=== PATIENT | female | born 1935 | race Caucasian/White ===

== ENCOUNTER 2024-12-23 08:42 | Outpatient (OUT) | payer MEDICARE, SELFPAY ==
--- OUTSIDE RECORDS SUMMARY | 2024-12-02 05:20 | XMS_ITS ---
Author Organization [facility] Address [address] [place] [address] Care Team Providers Care Furnace Hand Name Role Phone Nicola Salinas Unavailable [phone] Bao Iqbal Unavailable [phone] Allergies No Known Allergies REASON FOR VISIT JAM - Right Knee OA, Sympt Check Social History Tobacco Use: Social History Observation Description Date Details (start date - stop date) Never Smoker NA - NA AUDIT-C (Standard) Question Answer Notes Did you have a drink containing alcohol in the p ast year? No Points 0 Interpretation Negative Tobacco Control (Standard) Question Answer Notes Tobacco use: Nonsmoker Encounters Encounter Location Date Provider Diagnosis [facility] [address] [place] [id number] 12/02/2024 Bao Iqbal Primary osteoarthrit is of right knee M17.11 Assessments Encounter Date Diagnosis (ICD Code) Assessment Notes Treatment Notes Treatment Clinical Notes Section Notes 12/02/2024 Primary osteoarthritis of right knee (ICD-10 - M17.11) 12/02/2024 Other The nature treatment and recovery of [...] the office. This is on file at [facility]. Medical clearance is pending The above plan [...] the office. This is on file at [facility]. Medical clearance is pending The above plan is a continuation of previous treatment plan set forth by or agreed upon by Dr. Nicola Salinas MD. Preoperative laboratory studies were ordered today. Next Appt Details Follow Up: To Schedule Surge ry, Reason: Provider Name:Nicola Roland , 01/15/2025 12:30:00 PM, [address] [place] [address], [address], [place], [place], [id number], Provider Name:Nicola Roland , 01/30/2025 10:40:00 AM, [address] [place] [address], [phone], Progress Notes * MADISON VU RDOB:[birth year] (89 yo F)Acc No.[id number]:12/02/2024 Patient: MADISON CHAUDHARI Provider: MARIO Allison :1935 A ge:89 Y S ex:Female Date:12/02/2024 Address:[facility] [place], [id number] Subjective: * Chief Complaints: * 1 . JAM - Right Knee OA, Sympt Check. * HPI: H andP: Madison VU presents for right total knee replacement consultation. Patient reports chronic right knee pain secondary to severe arthritis. Previous treatment with cortisone injections was initially effective but no longer provides relief. Patient states she can't wait to be pain-free and has decided it's time to do something constructive about the condition. S urgeon: Dr. Babar Salinas MD. P rocedure Location: [facility]. H ospital Status: The patient's hospital status will be considered as 23 hour observation. H PI: The following note will serve as both clinical documentation for today's visit and surgical history and physical. Madison Vu is an 89-year-old female presenting for pre-operative history and physical examination in preparation for right total knee replacement surgery scheduled for 01/15/2025 at the [facility]. Patient reports ongoing knee [...] disease, heart attack, stroke, blood clots, smoking, or alcohol use. She takes no medications currently. Allergic to cough syrup which causes facial flushing. No known allergies to penicillin. No history of irregular heartbeat or heart murmur. Uses [facility] in [place]. H ome-Going Plans: The patient intends on returning home after their hospital stay. P ost-Operative Pain Management: Patient denies any specific needs for pain medication. We will utilize normal pain protocol. D VT Prophylaxis: On evaluation of the patient's past medical history she makes risk stratification for the use of aspirin 81 mg 1 tab twice daily #60 for DVT prophylaxis. I ndications: Right knee pain. * ROS: U nchanged from xx/xx/xxxx. * Medical History: M edical [...] N .K.D.A. Objective: * Vitals: * Examination: X -ray Imaging Studies: X -ray imaging of the right knee demonstrates eaxr-fn-nzfb contact with complete loss of cartilage, consistent with severe degenerative joint disease. R ight Lower Extremity: R ight knee examination reveals maximum flexion of approximately [...] tendon reflexes are intact. No lymphadenopathy is noted.Range of motion of the knee is 0-120 degrees. There is point tenderness to touch over the medial joint line. Patient has pseudo-laxity with a valgus stress test. Negative anterior drawer, posterior drawer, Edison. G eneral examination: G eneral: Patient is alert and oriented x4. Well-dressed, well-groomed and pleasant in the office today. Patient is in no acute distress. Abdominal: Normal bowel sounds were auscultated in all quadrants. The abdomen was soft and nontender. No organomegaly or pulsatile masses were noted on exam. specific exam: X-ray Imaging studies: Three-view x-rays of the right knee obtained at [facility] at a previous appointment show loss of medial joint line space, para-articular osteophyte formation, and subchondral sclerosis noted on examination today.These x-rays were reviewed and templated by Dr. Salinas for the upcoming surgery. H EENT: T he patient is normocephalic, atraumatic. Pupils are equal and reactive to light. Extraocular motions are intact x3. Oral mucosa is pink and moist. Uvula is midline. The neck is soft and supple with a full range of motion. No masses were palpated on examination today, and no bruits were auscultated on examination. Cranial nerves II through XII are grossly intact. C ardiovascular: N ormal rate and rhythm auscultated on examination today. No rubs, murmurs or gallops are noted. P ulmonary: N ormal vesicular breath sounds were auscultated in all nieves. No rales, wheezes or rhonchi were noted. On examination today. L eft Upper Extremity: E xamination of the left upper extremity shows full range of motion 5-5 strength of the left shoulder, elbow, wrist, thumb and phalangeal joints. Good radial pulse. Capillary refill is less than 2 seconds. The patient is neurovascularly intact distally. Deep tendon reflexes are intact. No lymphadenopathy is noted on examination. L eft Lower Extremity: E xamination of the left lower extremity shows a full range of motion 5-5 strength of the left hip, ankle, subtalar, and phalangeal joints. Good pedal pulses. Capillary refills less than 2 seconds. The patient is neurologically intact distally. Deep tendon reflexes are intact. No lymphadenopathy is noted on examination. R ight Upper Extremity: E xamination of the right upper extremity shows a full range of motion and 5 out of 5 strength of the right shoulder, elbow, wrist, thumb and phalangeal joint. Good pedal pulses. Capillary refills less than 2 seconds. The patient is neurologically intact distally. Deep tendon reflexes are intact. No lymphadenopathy is noted on examination. Assessment: * Assessment: 1. P rimary osteoarthritis of right knee - M17.11 (Primary) Plan: * Treatment: * Follow Up: T o Schedule Surgery Forms: * Images: * Electronic signature of Bao Iqbal PA-C on 12/23/2024 at 08:53 AM EDT Sign off status: Pending * Provider: MARIO Allison Date: 0 12/02/2024 Generated for Krys dave/Radha/Maryitting on: 08:53 AM EDT History and Physical Notes * HPI (History of Present Illness) Category Sub-Category Detail Notes Category Not es HandP Madison VU p resents for right total knee replacement consultation. Patient reports chronic right knee pain secondary to severe arthritis. Previous treatment with cortisone injections was initially effective but no longer provides relief. Patient states she can't wait to be pain-free and has decided it's time to do something constructive about the condition. HPI The following n ote will serve as both clinical documentation for today's visit and surgical history and physical. Madison Vu is an 89-year-old female presenting for pre-operative history and physical examination in preparation for right total knee replacement surgery scheduled for 01/15/2025 at the [facility]. Patient reports ongoing knee [...] disease, heart attack, stroke, blood clots, smoking, or alcohol use. She takes no medications currently. Allergic to cough syrup which causes facial flushing. No known allergies to penicillin. No history of irregular heartbeat or heart murmur. Uses [facility] in [place]. Surgeon Dr. Babar Salinas MD Indications Right knee pain Home-Going Plans The patient intends on returning home after their hospital stay. Post-Operative Pain Management Patient denies any specific needs for pain medication. We will utilize normal pain protocol. DVT Prophylaxis On evaluatio n of the patient's past medical history she makes risk stratification for the use of aspirin 81 mg 1 tab twice daily #60 for DVT prophylaxis Procedure Location [facility] Status The patient' s hospital status will be considered as 23 hour observation. Examination Category Sub-Category Detail Notes Category Not es General examination General: Patient is alert and oriented x4. Well-dressed, well-groomed and pleasant in the office today. Patient is in no acute distress. Abdominal: Normal bowel sounds were auscultated in all quadrants. The abdomen was soft and nontender. No organomegaly or pulsatile masses were noted on exam. specific exam: X-ray Imaging studies: Three-view x-rays of the right knee obtained at [facility] at a previous appointment show loss of medial joint line space, para-articular osteophyte formation, and subchondral sclerosis noted on examination today.These x-rays were reviewed and templated by Dr. Salinas for the upcoming surgery. X-ray Imaging Studies X-ray imaging of the right knee demonstrates mqld-pf-xkjq contact with complete loss of cartilage, consistent with severe degenerative joint disease. HEENT The patient is normocephalic, atraumatic. Pupils are equal and reactive to light. Extraocular motions are intact x3. Oral mucosa is pink and moist. Uvula is midline. The neck is soft and supple with a full range of motion. No masses were palpated on examination today, and no bruits were auscultated on examination. Cranial nerves II through XII are grossly intact. Cardiovascular Normal rate a nd rhythm auscultated on examination today. No rubs, murmurs or gallops are noted. Pulmonary Normal vesicula r breath sounds were auscultated in all nieves. No rales, wheezes or rhonchi were noted. On examination today. Left Upper Extremity Examina tion of the left upper extremity shows full range of motion 5-5 strength of the left shoulder, elbow, wrist, thumb and phalangeal joints. Good radial pulse. Capillary refill is less than 2 seconds. The patient is neurovascularly intact distally. Deep tendon reflexes are intact. No lymphadenopathy is noted on examination Left Lower Extremity Examina tion of the left lower extremity shows a full range of motion 5-5 strength of the left hip, ankle, subtalar, and phalangeal joints. Good pedal pulses. Capillary refills less than 2 seconds. The patient is neurologically intact distally. Deep tendon reflexes are intact. No lymphadenopathy is noted on examination. Right Lower Extremity Right knee examination reveals maximum [...] tendon reflexes are intact. No lymphadenopathy is noted.Range of motion of the knee is 0-120 degrees. There is point tenderness to touch over the medial joint line. Patient has pseudo-laxity with a valgus stress test. Negative anterior drawer, posterior drawer, Edison. Right Upper Extremity Examin ation of the right upper extremity shows a full range of motion and 5 out of 5 strength of the right shoulder, elbow, wrist, thumb and phalangeal joint. Good pedal pulses. Capillary refills less than 2 seconds. The patient is neurologically intact distally. Deep tendon reflexes are intact. No lymphadenopathy is noted on examination
--- OUTSIDE RECORDS SUMMARY | 2024-12-09 08:00 | XMS_ITS | Encounter Summary ---
Author Organization [facility] Address [address] [place] [address] Care Team Providers Care Sweatband Drummer Name Role Phone Vipul Cruz MD Primary Care Provider [phone] Vipul Cruz MD Unavailable [phone] Vipul Cruz MD Unavailable [phone] Reason for Visit * Rehabilitation - Outpatient (Routine) - Closed Specialty Diagnoses / Procedures Referred By Contac t Referred To Contact Physical Therapy Diagnoses Unilateral primary osteoarthritis, right knee Procedures TX PHYSICAL THERAPY EVALUATION LOW COMPLEX 20 MINS TX OFFICE/OUTPATIENT NEW HIGH MDM 60 MINUTES Bao Iqbal PA [address] [place] [address] Phone: tel: fax: Laly Davis PT Referral ID Status Reason Start Date Expiration Date V isits Requested Visits Authorized [id number] Closed Consult and Treat 12/05/2024 02/02/2025 6 6 Encounter Details Date Type Department Care Team (Late st Contact Info) Description 12/09/2024 8:00 AM EDT [facility] [address] [place] [address] Karan Garner PTA Unilateral primary osteoarthritis, right knee (Primary Dx) Social History Tobacco Use Types Packs/Day Years Used Date Smoking Tobacco: Never Passive Smoke Exposure: Never Smokeless Tobacco: Never Alcohol Use Standard Drinks/Week Comments Never 0 (1 standard drink = 0.6 oz pur e alcohol) PHQ-2 Answer Date Recorded Patient Health Questionnaire-2 Score 0 11/21/2024 Comments Unknown Sex and Gender Information Value Date Recorded Sex Assigned at Not on file Legal Sex Female 7:39 PM EDT Gender Identity Not on file Sexual Orientation Not on file documented as of this encounter Progress Notes * Karan Garner, RECORD SYSTEMS ANALYST - 12/09/2024 8:00 AM EDT Images from the original note were not included. Physical Therapy Treatment Visit Patient Name: Madison Quach Today's Date: 12/09/2024 Encounter Diagnoses Name Primary? Unilateral primary osteoarthritis, right knee Yes Visit number: 8 (2 of 6 visits) Timed Code Treatment: 53 minutes Total Treatment Time: 53 minutes Time In: 0750 Time Out: 0850 History: Pt states she has been dealing with right knee pain for a number of years. Pt states she has had multiple injections in right knee over the years. Has never had any surgical intervention. Ptstates she has been looking into surgical options and is to begin PT. Plan for surgery in January of this year. Pt states she has been using Biofreeze at night to help her sleep. Precautions: [place] Subjective: Pt reports knees are doing well. She has been doing stair with reciprocal gait without thought. Pain: denies present Objective: PT Evaluation (11/14/2024) RIGHT KNEE AROM: 15 to 110 degrees in supine PROM: 12 to 115 degrees in supine Joint play: limited tibiofemoral mobility; decrease patellar mobility due to pain MMT: hip 4-/5, quad 4-/5 due to pain, HS 4/5 Palpation: moderate to severe tenderness medial and lateral joint space Special Test: N/A Functional: TUG without use of device: 21.67 seconds and 16.28 seconds Treatment: Manual Therapy: Passive ROM, Joint mobilization, Soft Tissue Mobilization, Myofascial Release, Muscle Energy Technique, Neural Mobilization, Myofascial Cupping, Dry Needling, IASTM, and Scar mobilization as needed. Therapeutic Exercise: ( 38 minutes supervised) Pt was instructed in and performed open and closed chain ther ex to improve knee mobility and muscular support for preparation of knee surgery. Nustep (PRN) set to hills lev 1 to prepare muscles for activity Therapeutic Activity: (15 minutes) Exercises to improve dynamic activities, functional tasks, functional mobility to return to prior activity level as needed. Practiced stairs with step to gait preparing for post op and use of up with good, down with bad . Neuromuscular re-education: Balance Training, Muscle Facilitation, Dynamic Stability, Core Stabilization, and Blood Flow Restriction Training (BFRT) as needed. Modalities: Heat, Ice, Electrical Stimulation, Ultrasound, Cervical Mechanical Traction, Lumbar Mechanical Traction, Iontophoresis, and Fluidotherapy as needed. Assessment: Visit # 7 pt for complaints of chronic right knee pain. R knee AROM 8-120 deg, quad strength 4+/5. Pain continues to limit patients activity. Educated Pt on stairs and use of step to gait with appropriate post op sequencing. Pt is scheduled for TKA in January, continue focusing on quad strength to prepare pt for up coming. Outcome Measure: Lower Extremity Functional Scale (LEFS): 15/80 Rehab Diagnosis: right knee pain, difficulty walking, decrease ROM and mobility Short Term Goal: To be met in 2 weeks Goal 1: Pt to be instructed in home exercise program. Muck Hauler Goals: To be met in 10 weeks Goal 1: Pt to report independence and compliance with home program. Met progressing Goal 2: Pt to achieve 120 degrees right knee flexion to assist with functional tasks such as squatting. progressing Goal 3: Pt to be lacking no greater than 1 degree right knee extension to assist with proper gait. met Goal 4: Pt to achieve 4 to 4+/5 strength right knee flexion and extension to assist with functionalmobility and ADL's. progressing Goal 5: Pt to score no less than 25/80 on LEFS indicating improved QOL. progressing Goal 6: Pt to complete TUG without use of device in less than 13.0 seconds indicating improve gait and mobility. progressing Pt will benefit from skilled PT for 2x/week from 11/14/2024 to 02/06/2025 to address the above impairments. I hereby deem this POC medically necessary. Please sign below. Date: Cosigned by Laly Davis PT at 12/10/2024 12:19 PM EDT documented in this encounter Plan of Treatment Upcoming Encounters Date Type Department Care Team (Late st Contact Info) Description 12/30/2024 2:00 PM EDT Office Visit [facility] [place] [facility] [address] [facility] [address] [place] [address] Vipul Cruz MD [address] [facility] [address] [place] [address] documented as of this encounter Visit Diagnoses Diagnosis Unilateral primary osteoarthritis, right knee- Primary documented in this encounter Care Teams Sweatband Drummer Relationship Specialty Start Date End Date Vipul Cruz MD [address] [facility] [address] [place] [address] PCP - General Internal Medicine 07/21/22 Vipul Cruz MD [address] [facility] [address] [place] [address] PCP - Sherri LIVINGSTON 07/12/23 Vipul Cruz MD [address] [facility] [address] [place] [address] PCP - Gilberto 11/11/24 12/15/24 documented as of this encounter
--- OUTSIDE RECORDS SUMMARY | 2024-12-12 08:00 | XMS_ITS | Encounter Summary ---
Author Organization [facility] Address [address] [place] [address] Care Team Providers Care Manager Fire Name Role Phone Vipul Cruz MD Primary Care Provider [phone] Vipul Cruz MD Unavailable [phone] Vipul Cruz MD Unavailable [phone] Reason for Visit * Rehabilitation - Outpatient (Routine) - Closed Specialty Diagnoses / Procedures Referred By Contac t Referred To Contact Physical Therapy Diagnoses Unilateral primary osteoarthritis, right knee Procedures [place] PHYSICAL THERAPY EVALUATION LOW COMPLEX 20 MINS [place] OFFICE/OUTPATIENT NEW HIGH MDM 60 MINUTES Bao Iqbal PA [address] [place] [address] Phone: tel: fax: Laly Davis PT Referral ID Status Reason Start Date Expiration Date V isits Requested Visits Authorized [id number] Closed Consult and Treat 12/05/2024 02/02/2025 6 6 Encounter Details Date Type Department Care Team (Late st Contact Info) Description 12/12/2024 8:00 AM EDT Treatment [facility] [address] [place] [address] Karan Garner PTA Unilateral primary osteoarthritis, right [...] this encounter Progress Notes * Karan Garner, MEDICAL CODING AUDITOR - 12/12/2024 8:00 AM EDT Images from the original note were not included. Physical Therapy Treatment Visit Patient Name: Madison Quach Today's Date: 12/12/2024 Encounter Diagnoses Name Primary? Unilateral primary osteoarthritis, right knee Yes Visit number: 10 (3 of 6 visits) Timed Code Treatment: 53 minutes Total Treatment Time: 53 minutes Time In: 0750 Time Out: 0845 History: Pt states she has been dealing [...] at night to help her sleep. Precautions: [place] Subjective: Pt reports knees are doing well. [...] and Fluidotherapy as needed. Assessment: Visit # 9 pt for complaints of chronic right knee pain. R knee AROM 8-120 deg, quad strength 4+/5. Pain continues to limit patients activity. Educated Pt on stairs and use of step to gait with appropriate post op sequencing. Answered all questions and reviewed HEP to ensure understanding for preparation of TKA. Pt is scheduled for TKA in January. Pt will transfer to Home management until post Op. Outcome Measure: Lower Extremity Functional Scale (LEFS): 15/80 Rehab Diagnosis: right knee pain, difficulty walking, decrease ROM and mobility Short Term Goal: To be met in 2 weeks Goal 1: Pt to be instructed in home exercise program. Cylinder Batcher Goals: To be met in 10 weeks [...] Date: Cosigned by Laly Davis PT at 12/16/2024 8:58 AM EDT documented in this encounter Plan of Treatment Upcoming Encounters Date Type Department Care Team (Late st Contact Info) Description 12/30/2024 2:00 PM EDT Office Visit [facility] [place] [facility] [address] [place] [address] Vipul Cruz MD [address] [place] [address] documented as of this encounter Visit Diagnoses Diagnosis Unilateral primary osteoarthritis, right knee- Primary documented in this encounter Care Teams Manager Fire Relationship Specialty Start Date End Date Vipul Cruz MD [address] [place] [address] PCP - General Internal Medicine 07/21/22 Vipul Cruz MD [address] [facility] [address] [place] [address] PCP - Sherri LIVINGSTON 07/12/23 Vipul Cruz MD [address] [facility] [address] [place] [address] PCP - Gilberto 11/11/24 12/15/24 documented as of this encounter
--- OUTSIDE RECORDS SUMMARY | 2024-12-23 08:52 | XMS_ITS | Encounter Summary ---
Author Organization [facility] Address [address] [place] [address] Care Team Providers Care Olericulture Professor Name Role Phone Vipul Cruz MD Primary Care Provider [phone] Vipul Cruz MD Unavailable [phone] Vipul Cruz MD Unavailable [phone] Encounter Details Date Type Department Care Team (Late Contact Info) Description 12/15/2023 Abstract [facility] [place] [facility] [address] [facility] 110 [place] [address] Vipul Cruz MD [address] [facility] [address] [place], [place] [address] Social History Tobacco Use Types Packs/Day Years Used Date Smoking Tobacco: Never Passive Smoke Exposure: Never Smokeless Tobacco: Never Alcohol Use Standard Drinks/Week Comments Never 0 (1 standard drink = 0.6 oz pur e alcohol) PHQ-2 Answer Date Recorded Patient Health Questionnaire-2 Score 0 07/10/2023 Comments Unknown Sex and Gender Information Value Date Recorded Sex Assigned at Not on file Legal Sex Female 7:39 PM EDT Gender Identity Not on file Sexual Orientation Not on file documented as of this encounter Plan of Treatment Upcoming Encounters Date Type Department Care Team (Late Contact Info) Description 12/30/2024 2:00 PM EDT Office Visit [facility] [place] [facility] [address] [facility] [address] [place] [phone] Vipul Cruz MD [address] [facility] [address] [place] [address] documented as of this encounter Visit Diagnoses Not on filedocumented in this encounter Care Teams Olericulture Professor Relationship Specialty Start Date End Date Vipul Cruz MD [address] [facility] [address] [place] [address] PCP - General Internal Medicine 07/21/22 Vipul Cruz MD [address] [facility] 110 [place] [address] PCP - Sherri LIVINGSTON 07/12/23 Vipul Cruz MD [address] [facility] [address] [place] [address] PCP - [employer] 11/11/24 12/15/24 documented as of this encounter
--- OUTSIDE RECORDS SUMMARY | 2024-12-23 08:52 | XMS_ITS | Patient Health Record ---
Author Organization [facility] Address [address] [place] [address] Care Team Providers Care Resident Engineer Name Role Phone Nicola Salinas Unavailable [phone] Bao Iqbal Unavailable [phone] Allergies No Known Allergies Results Component Value Reference Range Notes Surgery Scheduling (Not yet reviewed by provider) Interpretation: Performing Lab: Notes/Report: Social Sec number: [id number] Primary Insurance Company: [employer] Medicare Surgeon/Assist: Brad / Bao Assist Surgery Location: [facility] Surgery Date & Time: 01/15/25, 12:30 pm Hosp arrival time day of: 9:30am (PER JAM) Surgery End Time: 2hr 00min Procedure: Right Jiffy TKR Special Equipment: Routine - Mandy & Pandy C-Arm: No Diagnosis: Right Knee OA Admission Type: 23hr Obsv Anesthesia Type/CPNB: Spinal vs General Bed Supine Latex Allergy No Lab Location: [facility] Date/T Yes, Please call patient Electronic Parts Salesperson: Aby [phone] Clearance Physician: Dr. Jason Cruz ([facility]) History & Physical Appointment Date/: Done PT Appointment Date/Time: To Begin Jan 17 or Had or have MRSA/Direct cont act w MRSA pt/HCW No Reason For Referral Reason needs started [facility] 01/15/25 Right Total Knee Replacement at [facility] 01/15/25, 23hr Obsv Diagnosis 1 Primary osteoarthrit is of right knee (M17.11) Referral Organization [facility] Referring Provider First Name Nicola Referring Provider Last Name Brad Referring Provider Speciality Orthopedic Surgery Referred Organization [facility] - Outpatient Referred Provider Nicola Salinas Referred Address [address] [place] [address], [id number], Referred Provider Specialty Orthopedic S urgery Procedure 1 Arthroplasty Knee To allen Med/Lat Compartments (67938) Referral Priority Routine Social History Tobacco Use: Social History Observation Description Date Details (start date - stop date) Never Smoker NA - NA AUDIT-C (Standard) Question Answer Notes Did you have a drink containing alcohol in the p ast year? No Points 0 Interpretation Negative Tobacco Control (Standard) Question Answer Notes Tobacco use: Nonsmoker Problems Problem Type SNOMED Code ICD Code Onset Dates Problem Status W/U Status Risk Notes Problem Osteoarthritis of knee (470501213) Primary osteoarthritis of right knee (M17.11) Active confirmed Vital Signs Height 68 in 11/04/2024 Weight 180 lbs 11/04/2024 BMI 27.37 11/04/2024 Encounters Encounter Location Date Provider Diagnosis [facility] [address] [place] [phone] 12/02/2024 Bao Farida Primary osteoarthrit is of right knee M17.11 [facility] [address] [place] [phone] 11/04/2024 Bao Farida Primary osteoarthrit is of right knee M17.11 Assessments Encounter Date Diagnosis (ICD Code) Assessment Notes Treatment Notes Treatment Clinical Notes Section Notes 11/04/2024 Primary osteoarthritis of right knee (ICD-10 - M17.11) 12/02/2024 Primary osteoarthritis of right knee (ICD-10 [...] the office. This is on file at [facility]. Medical clearance is pending The above plan is a continuation of previous treatment plan set forth by or agreed upon by Dr. Nicola Salinas MD. Preoperative laboratory studies were ordered today. 11/04/2024 Other 1. Given the severity of Madison Vu's symptoms and failure of conservative treatments including multiple injection therapies, discussed surgical options for right knee osteoarthritis. 2. Explained that arthroscopic debridement would not provide significant long-term improvement given the extent of cartilage loss, using the analogy of a bald tire where scraping steel belts without replacing the tire would not restore function. 3. The primary surgical option is total knee replacement, which involves trimming arthritic bone and placing metal and plastic components to replace the joint surfaces. 4. Discussed that this is an elective procedure with inherent risks, particularly in Madison Vu's age group, including the possibility of not regaining pre-surgical function levels. 5. However, given Madison Vu's functional limitations and pain level, this represents a logical next step. 6. Dr. Salinas performs a minimally invasive technique that avoids cutting through muscle, potentially allowing for easier recovery compared to traditional approaches. 7. The treatment plan includes: - Physical therapy as required by Medicare prior to surgery. - Scheduling knee replacement surgery approximately 2 months in advance due to Dr. Salinas's surgical schedule. - Follow-up appointment with Dr. Salinas for pre-operative evaluation and final surgical planning. 8. Provided educational materials about the minimally invasive knee replacement technique. 9. Discussed realistic expectations including the possibility of continued discomfort post-operatively, though significant improvement is anticipated. 10. Madison Vu expressed understanding of the risks and desire to proceed with surgery to regain function, specifically mentioning the goal of being able to mow the yard next year.HPI: Plan Of Treatment Pending Test Test Name Order Date Surgery Scheduling 12/03/2024 PT EVAL AND TREAT 11/04/2024 JAM-KNEE, RIGHT 3V [id number] 11/04/2024 Pre-Op Testing Orders 12/03/2024 Next Appt Details Provider Name:Nicola Da Silva Luan , 01/15/2025 12:30:00 PM, [address] [place] [address], [facility] [place], [id number], Provider Name:Nicola Roland , 01/30/2025 10:40:00 AM, [address] [place] [address], [id number], Insurance Providers Payer Name Payer Address Payer Phone Subscriber Number Group Number Insured Name Patient Relationship to Insured Coverage Start Date Coverage End Date Medicare [place] [employer] [address] [place] [id number] [facility] [place] VU Self - patient is the insured 5 [place] [address] [place] [address] [id number] [place] VU Self - patient is the insured 5 Medical (General) History Surgical History Surgery Date(Month/Year) Hysterectomy
--- OUTSIDE RECORDS SUMMARY | 2024-12-23 08:52 | XMS_ITS | Encounter Summary ---
Author Organization [facility] Address [address] [place] [address] Care Team Providers Care Kapok And Cotton Machine Operator Name Role Phone Vipul Cruz MD Unavailable [phone] Vipul Cruz MD Primary Care Provider [phone] Vipul Cruz MD Unavailable [phone] Vipul Cruz MD Unavailable [phone] Encounter Details Date Type Department Care Team (Late st Contact Info) Description 08/03/2022 Orders Only [facility] [place] [facility] [address] [facility] [address] [place] [phone] Chetna Burch NP [address] [place] [address] Social History Tobacco Use Types Packs/Day Years Used Date Smoking Tobacco: Never Assessed Comments Unknown Sex and Gender Information Value Date Recorded Sex Assigned at Not on file Legal Sex Female 7:39 PM EDT Gender Identity Not on file Sexual Orientation Not on file documented as of this encounter Plan of Treatment Upcoming Encounters Date Type Department Care Team (Late st Contact Info) Description 12/30/2024 2:00 PM EDT Office Visit [facility] [place] [facility] [address] [place] [address] Vipul Cruz MD [address] [place] [address] documented as of this encounter Procedures Procedure Name Priority Date/Time Associated Diagnosis Comments BONE DENSITY, DEXA 1 OR MORE SITES: AXIAL SKELETON Routine 07/29/2022 1:26 PM EDT XR DEXA SPINE Routine 07/29/2022 11:36 AM EDT documented in this encounter Results * BONE DENSITY, DEXA 1 OR MORE SITES: AXIAL SKELETON (07/29/2022 1:26 PM EDT) Anatomical Region Laterality Modality Other us Vipul Cruz MD [facility] Final Result * XR DEXA SPINE (07/29/2022 11:36 AM EDT) Anatomical Region Laterality Modality Radiographic Radha ging us Chetna Burch IRON[facility] IMG XR PROCEDURES Final Resu lt documented in this encounter Visit Diagnoses Not on filedocumented in this encounter Care Teams Kapok And Cotton Machine Operator Relationship Specialty Start Date End Date Vipul Cruz MD [address] [place] [address] PCP - Sherri LIVINGSTON 03/13/21 05/11/23 Vipul Cruz MD [address] [place] [address] PCP - General Internal Medicine 07/21/22 Vipul Cruz MD [address] [place] [address] PCP - Sherri LIVINGSTON 07/12/23 Vipul Cruz MD [address] [place] [address] PCP - [employer] 11/11/24 12/15/24 documented as of this encounter
--- OUTSIDE RECORDS SUMMARY | 2024-12-23 08:52 | XMS_ITS | Clinical Summary ---
Author Organization [facility] Address [address] [facility], [address] [place] [address] Care Team Providers Care Utility Bagger Name Role Phone Vipul Cruz MD Primary Care Provider [phone] Allergies No known active allergies Medications No known medications Active Problems No known active problems Social History Tobacco Use Types Packs/Day Years Used Date Smoking Tobacco: Never Smokeless Tobacco: Never Comments Unknown Sex and Gender Information Value Date Recorded Sex Assigned at Not on file Legal Sex Female 4:17 PM EST Gender Identity Not on file Sexual Orientation Not on file Last Filed Vital Signs Vital Sign Reading Time Taken Comments Blood Pressure 124/76 03/03/2020 1:44 PM EST Pulse 82 03/03/2020 1:44 PM EST Temperature 36.1 C (97 F) 03/03/2020 1:44 PM EST Respiratory Rate 19 03/03/2020 1:44 PM EST Oxygen Saturation 98% 03/03/2020 1:44 PM EST Inhaled Oxygen Concentration - - Weight 82.3 kg (181 lb 6.4 oz) 03/03/2020 1:44 P M EST Height 172.7 cm (5' 8 ) 03/03/2020 1:44 PM EST Body Mass Index 27.58 03/03/2020 1:44 PM EST Plan of Treatment Not on file Insurance [facility] MEDIC[facility] Care Teams Utility Bagger Relationship Specialty Start Date End Date Vipul Cruz MD 112 [facility] 110 [place] [address] PCP - General Internal Medicine 01/29/20
--- OUTSIDE RECORDS SUMMARY | 2024-12-23 08:53 | XMS_ITS | Encounter Summary ---
Author Organization [facility] Address [address] [place] [address] Care Team Providers Care Textile Worker Name Role Phone Vipul Cruz MD Primary Care Provider [phone] Vipul Cruz MD Unavailable [phone] Vipul Cruz MD Unavailable [phone] Encounter Details Date Type Department Care Team (Latest Contact Info) Description 12/12/2024 Travel Social History Tobacco Use Types Packs/Day Years [...] Description 12/30/2024 2:00 PM EDT Office Visit [facility] [address] [place] [address] Vipul Cruz MD [address] [place] [address] documented as of this encounter Visit Diagnoses Not on filedocumented in this encounter Care Teams Textile Worker Relationship Specialty Start Date End Date Vipul Cruz MD [address] [place] [address] PCP - General Internal Medicine 07/21/22 Vipul Cruz MD [address] [facility] [address] [place] [address] PCP - Sherri LIVINGSTON 07/12/23 Vipul Cruz MD [address] [facility] [place] [address] PCP - [employer] 11/11/24 12/15/24 documented as of this encounter
--- OUTSIDE RECORDS SUMMARY | 2024-12-23 08:53 | XMS_ITS | Encounter Summary ---
Author Organization [facility] Address [address] [place] [address] Care Team Providers Care Em Physician Name Role Phone Vipul Cruz MD Primary Care Provider [phone] Vipul Cruz MD Unavailable [phone] Vipul Cruz MD Unavailable [phone] Encounter Details Date Type Department Care Team (Late Contact Info) Description 12/12/2024 Bamboo flowsheet [facility] [place] [facility] [address] [email or web address] [address] [place] [address] Karan Garner PTA Social History Tobacco Use Types Packs/Day Years [...] 2:00 PM EDT Office Visit [facility] [place] [facility] [address] [place] [address] Vipul Cruz MD [address] [place], [place] [phone] documented as of this encounter Visit Diagnoses Not on filedocumented in this encounter Care Teams Em Physician Relationship Specialty Start Date End Date Vipul Cruz MD [address] [facility] [address] [place] [address] PCP - General Internal Medicine 07/21/22 Vipul Cruz MD [address] [facility] [address] [place] [address] PCP - Sherri LIVINGSTON 07/12/23 Vipul Cruz MD [address] [facility] [address] [place] [address] PCP - Gilberto 11/11/24 12/15/24 documented as of this encounter
--- OUTSIDE RECORDS SUMMARY | 2024-12-23 08:53 | XMS_ITS | Encounter Summary ---
Author Organization [facility] Address [address] [place] [address] Care Team Providers Care Landman Name Role Phone Vipul Cruz MD Primary Care Provider [phone] Vipul Cruz MD Unavailable [phone] Vipul Cruz MD Unavailable [phone] Encounter Details Date Type Department Care Team (Latest Contact Info) Description 12/09/2024 Travel Social History Tobacco Use Types Packs/Day [...] [facility] [address] [place] [address] Vipul Cruz MD [address] [place] [address] documented as of this encounter Visit Diagnoses Not on filedocumented in this encounter Care Teams Landman Relationship Specialty Start Date End Date Vipul Cruz MD [address] [place] [address] PCP - General Internal Medicine 07/21/22 Vipul Cruz MD [address] [facility] [address] [place] [address] PCP - Sherri LIVINGSTON 07/12/23 Vipul Cruz MD [address] [facility] [place] [address] PCP - [employer] 11/11/24 12/15/24 documented as of this encounter
--- OUTSIDE RECORDS SUMMARY | 2024-12-23 08:53 | XMS_ITS | Encounter Summary ---
Author Organization [facility] Address [address] [place] [address] Care Team Providers Care Crew Mess Attendant Name Role Phone Vipul Cruz MD Primary Care Provider [phone] Vipul Cruz MD Unavailable [phone] Vipul Cruz MD Unavailable [phone] Encounter Details Date Type Department Care Team (Late Contact Info) Description 07/22/2024 Abstract [facility] [place] [facility] [address] [facility] [address] [place] [address] Vipul Cruz MD 112 [facility] 110 [place], [place] [phone] Social History Tobacco Use Types Packs/Day Years Used Date Smoking Tobacco: Never Passive Smoke Exposure: Never Smokeless Tobacco: Never Alcohol Use Standard Drinks/Week Comments Never 0 (1 standard drink = 0.6 oz pur e alcohol) PHQ-2 Answer Date Recorded Patient Health Questionnaire-2 Score 0 07/18/2024 Comments Unknown Sex and Gender Information Value Date Recorded Sex Assigned at Not on file Legal Sex Female 7:39 PM EDT Gender Identity Not on file Sexual Orientation Not on file documented as of this encounter Plan of Treatment Upcoming Encounters Date Type Department Care Team (Late Contact Info) Description 12/30/2024 2:00 PM EDT Office Visit [facility] [place] [facility] [address] [facility] [address] [place] [address] Vipul Cruz MD [address] [facility] 110 [place] [address] documented as of this encounter Visit Diagnoses Not on filedocumented in this encounter Care Teams Crew Mess Attendant Relationship Specialty Start Date End Date Vipul Cruz MD [address] [facility] [address] [place] [address] PCP - General Internal Medicine 07/21/22 Vipul Cruz MD [address] [facility] [address] [place] [address] PCP - Sherri LIVINGSTON 07/12/23 Vipul Cruz MD [address] [facility] [address] [place] [address] PCP - [employer] 11/11/24 12/15/24 documented as of this encounter
--- OUTSIDE RECORDS SUMMARY | 2024-12-23 08:53 | XMS_ITS | Encounter Summary ---
Author Organization [facility] Address [address] [place] [address] Care Team Providers Care Die Mechanic Name Role Phone Vipul Cruz MD Primary Care Provider [phone] Vipul Cruz MD Unavailable [phone] Vipul Cruz MD Unavailable [phone] Encounter Details Date Type Department Care Team (Late Contact Info) Description 12/09/2024 Bamboo flowsheet [facility] [place] [facility] [address] [facility] [address] [place] [address] Karan Garner PTA Social History [...] Family [facility] [address] [place] [address] Vipul Cruz MD [address] [place], [place] [address] documented as of this encounter Visit Diagnoses Not on filedocumented in this encounter Care Teams Die Mechanic Relationship Specialty Start Date End Date Vipul Cruz MD [address] [facility] [address] [place] [address] PCP - General Internal Medicine 07/21/22 Vipul Cruz MD [address] [facility] [address] [place] [address] PCP - Sherri LIVINGSTON 07/12/23 Vipul Cruz MD [address] [facility] [address] [place] [address] PCP - Gilberto 11/11/24 12/15/24 documented as of this encounter
--- OUTSIDE RECORDS SUMMARY | 2024-12-23 08:53 | XMS_ITS | Clinical Summary ---
Author Organization [facility] Address [address] [place] [address] Care Team Providers Care Hospital Sales Representative Name Role Phone Vipul Cruz MD Primary Care Provider [phone] Vipul Cruz MD Unavailable [phone] Allergies No known active allergies Medications amoxicillin-cla vulanate (Augmentin) 875-125 MG tabletIndicatio ns:Acute recurrent frontal sinusitis,Acute cough Take 1 tablet (875 mg) by mouth in the morning and 1 tablet (875 mg) before bedtime. Do all this for 10 days. 20 tablet 5 12/02/19 25 predniSONE (Deltasone) 20 MG tabletIndicatio ns:Acute recurrent frontal sinusitis,Acute cough Take 1 tablet (20 mg) by mouth in the morning and 1 tablet (20 mg) before bedtime. Do all this for 5 days. 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 01/04/2024 Estrogen deficiency 01/04/2024 Hyperlipidemia 01/04/2024 Primary osteoarthritis of left knee 01/04/2024 Primary osteoarthritis of right knee 01/04/2024 Right-sided tinnitus 01/04/2024 Type 2 diabetes mellitus wit hout complication, without long-term current use of insulin 07/10/2023 Resolved Problems Problem Noted Date Diagnosed Date Resolved Date Impaired fasting glucose 01/04/2024 Encounters Date Type Department Care Team Description 12/12/2024 8:00 AM EDT Treatment [facility] [address] [place] [address] Karan Garner, BLADE BENDER FURNACE TENDER Unilateral primary osteoarthritis, right knee (Primary Dx) 12/12/2024 Bamboo flowsheet [facility] [address] [place] [address] Karan Garner, BLADE BENDER FURNACE TENDER 12/12/2024 Travel 12/09/2024 8:00 AM EDT Treatment [facility] [address] [place] [address] Karan Garner, BLADE BENDER FURNACE TENDER Unilateral primary osteoarthritis, right knee (Primary Dx) 12/09/2024 Bamboo flowsheet [facility] [address] [place] [address] Karan Garner, BLADE BENDER FURNACE TENDER 12/09/2024 Travel 12/05/2024 8:00 AM EDT Treatment [facility] [address] [place] [address] Karan Garner, BLADE BENDER FURNACE TENDER Unilateral primary osteoarthritis, right knee (Primary Dx) 12/05/2024 Bamboo flowsheet [facility] [address] [place] [address] Karan Garner, BLADE BENDER FURNACE TENDER 12/05/2024 Travel 12/02/2024 12:30 PM EDT Treatment [facility] [address] [place] [address] Cheli Lezama, BLADE BENDER FURNACE TENDER Unilateral primary osteoarthritis, right knee (Primary Dx) 12/02/2024 Travel 11/28/2024 8:00 AM EDT Treatment [facility] [address] [place] [address] Laly Davis, PT Unilateral primary osteoarthritis, right knee (Primary Dx) 11/28/2024 Bamboo flowsheet [facility] [address] [place] [address] Laly Davis, PT 11/28/2024 Travel 11/25/2024 3:00 PM EDT Treatment [facility] [address] [place] [address] Teja Cheli, BLADE BENDER FURNACE TENDER Unilateral primary osteoarthritis, right knee (Primary Dx) 11/25/2024 Bamboo flowsheet [facility] [address] [place] [address] DajuanCheli de, BLADE BENDER FURNACE TENDER 11/25/2024 Travel 11/21/2024 11:00 AM EDT Office Visit [facility] [address] [place] [address] Liz Dias, INTERLOCKING MACHINE OPERATOR Acute recurrent frontal sinusitis (Primary Dx); Acute cough 11/21/2024 8:00 AM EDT Treatment [facility] [address] [place] [address] Karan Garner, BLADE BENDER FURNACE TENDER Unilateral primary osteoarthritis, right knee (Primary Dx) 11/21/2024 Telephone [facility] [address] [place] [address] Vipul Cruz MD 11/21/2024 Travel 11/18/2024 8:00 AM EDT Treatment [facility] [address] [place] [address] Karan Garner, BLADE BENDER FURNACE TENDER Unilateral primary osteoarthritis, right knee (Primary Dx) 11/18/2024 Bamboo flowsheet [facility] [address] [place] [address] Thanh Garnerall, THERESE 11/18/2024 Travel 11/14/2024 9:30 AM EDT Evaluation [facility] [address] [place] [address] Laly Davis, PT Unilateral primary osteoarthritis, right knee (Primary Dx) 11/14/2024 Plan of Care Documentation [facility] [address] [facility] [address] [place] [address] 11/14/2024 Bamboo flowsheet [facility] [address] [facility] [address] [place] [address] Laly Davis, BELKYS 11/14/2024 Travel from Last 3 Months Immunizations Immunization Administration Dates Next Due Pneumococcal Polysaccharide PPSV23 01/15/2019 Family History Medical History Relation Name Comments Heart disease Father Hypertension Father Relation Name Status Comments Father Mother Social History Tobacco Use Types Packs/Day Years Used Date Smoking Tobacco: Never Passive Smoke Exposure: Never Smokeless Tobacco: Never Tobacco Cessation:Counseling Given: Yes Alcohol Use Standard Drinks/Week Comments Never 0 [...] Sign Reading Time Taken Comments Blood Pressure 118/72 11/21/2024 10:47 AM EDT Pulse 86 11/21/2024 10:47 AM EDT Temperature - - Respiratory Rate 18 11/21/2024 10:47 AM EDT Oxygen Saturation 94% 11/21/2024 10:47 AM EDT Inhaled Oxygen Concentration - - Weight 73.9 kg (163 lb) 11/21/2024 10:47 AM EDT Height 172.7 cm (5' 8 ) 11/21/2024 10:47 AM EDT Body Mass Index 24.78 11/21/2024 10:47 AM EDT Plan of Treatment Upcoming Encounters Date Type Department Care Team (Late st Contact Info) Description 12/30/2024 2:00 PM EDT [facility] [address] [facility] [address] [place] [address] Vipul Cruz MD [address] [facility] [address] [place] [address] Health Maintenance Due Date Last Done Comments Diabetes: Retinopathy Screening 02/03/1945 Diabetes: Urine Protein Screening 02/03/1955 Diabetes: Hemoglobin A1C 10/18/2024 025, 01/10/2024, 07/10/2023, Additional history exists Influenza Vaccine (#1) 2024 Pneumococcal Vaccine: 65+ Years (2 of 2 - PCV) 01/09/2025 01/15/2019 Postponed from 01/16/2020 (Patient Refused) Medicare Annual Wellness (AWV) 07/18/2025 07/18/2024, 07/10/2023, 10/25/2021 Procedures Procedure Name Priority Date/Time Associated Diagnosis Comments POCT GLYCATED HEMOGLOBIN, TOTAL Routine 07/18/2024 10:10 AM EDT Type 2 diabetes mellitus without complication, without long-term current use of insulin (HCC) from Last 3 Months or Most Recently Relevant to Health Maintenance Results * (ABNORMAL) POCT Glycated hemoglobin, total (07/18/2024 10:10 AM EDT) Hemoglobin A1C 7.4 Blood 07/18/2024 10:1 0 AM EDT Liz Dias NP POINT OF CARE TEST ENTER/EDIT OR DERABLES Final Result from Last 3 Months or Most Recently Relevant to Health Maintenance Insurance [facility] MEDICARE ADVANTAGE Care Teams Hospital Sales Representative Relationship Specialty Start Date End Date Vipul Cruz MD [address] [facility] [address] [place] [address] PCP - General Internal Medicine 07/21/22 Vipul Cruz MD [address] [facility] [address] [place] [address] PCP - Sherri LIVINGSTON 07/12/23
[2024-12-23 09:20] LABS: Hematocrit 43.1 % (36.0-48.0); Hemoglobin 14.0 g/dL (12.0-16.0); Immature Granulocytes Abs Auto 0.04 10^3/uL (0.00-0.03); Immature Granulocytes Pct Auto 0.8 % (0.0-0.5); Lymphocytes Absolute Auto 1.5 10^3/uL (1.2-3.8); Mean Corpuscular HGB Conc 32.5 g/dL (29.9-35.2); Mean Corpuscular Hemoglobin 29.0 pg (26.7-34.0); Mean Corpuscular Volume 89.2 fL (81.0-99.0); Platelet Count 218 10^3/uL (150-450); Red Blood Count 4.83 10^6/uL (4.20-5.40); White Blood Count 4.8 10^3/uL (4.0-11.0)
[2024-12-23 09:42] LABS: Anion Gap 15.7; Blood Urea Nitrogen 16.0 mg/dL (7.0-18.0); Calcium 8.8 mg/dL (8.5-10.1); Carbon Dioxide 25.0 mmol/L (21.0-32.0); Chloride 104 mmol/L (98-107); Estimated GFR (African America >60 (>=60 mL/min/1.73m^2); Estimated GFR (Non-African Ame >60 (>=60 mL/min/1.73m^2); Glucose 174 mg/dL (74-106); Potassium 4.7 mmol/L (3.5-5.1); Sodium 140 mmol/L (136-145)
--- NOTE | 2024-12-23 10:15 | ECG_ITS ---
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 Measurements Intervals [place] Rate: 74 P: 56 TX: 153 QRS: -35 QRSD: 88 T: 77 QT: 363 QTc: 405 Interpretive Statements SINUS RHYTHM WITH SINUS ARRHYTHMIA POSSIBLE LEFT ATRIAL ENLARGEMENT [-0.1mV P WAVE IN V1/V2] MARKED LEFT AXIS DEVIATION [QRS AXIS < -30] PATTERN CONSISTENT WITH PULMONARY DISEASE Abnormal ECG No previous ECG available for comparison Electronically Signed On 12-23-2024 12:57:57 EDT by SUSAN LEE M.D.
== END 2024-12-23 08:43 | disposition home or self-care (01) ==
LOC: LAB 08:50
PROVIDERS: PCP Internal Medicine; Visit Provider Orthopaedic Surgery
DX: Z01.818 Encounter for other preprocedural examination (principal); M17.11 Unilateral primary osteoarthritis, right knee
CPT/HCPCS: 36415; 80048; 85025; 87081; 93005

== ENCOUNTER 2025-01-10 09:43 | Outpatient (OUT) | payer MEDICARE, SELFPAY ==
--- OUTSIDE RECORDS SUMMARY | 2024-12-02 05:20 | XMS_ITS ---
Author Organization [facility] Address [address] [place] [address] Care Team Providers Care Electron Gun Assembler Name Role Phone Nicola Salinas Unavailable [phone] Bao Iqbal Unavailable [phone] Allergies No Known Allergies REASON FOR VISIT JAM - Right Knee OA, Sympt Check Social History Tobacco Use: Social History Observation Description Date Details (start date - stop date) Never Smoker NA - NA AUDIT-C (Standard) Question Answer Notes Did you have a drink containing alcohol in the p ast year? No Teuccb0PtmrwmwfeluxbzOlfiliknYtxayqk Control (Standard) Question Answer Notes Tobacco use: Nonsmoker Encounters Encounter Location Date Provider Diagnosis [facility] [address] [place] [address] 12/02/2024 Bao Iqbal Primary osteoarthrit is of [...] the office. This is on file at [facility]. Medical clearance is pending The above [...] the office. This is on file at [facility]. Medical clearance is pending The above plan is a continuation of previous treatment plan set forth by or agreed upon by Dr. Nicola Salinas MD. Preoperative laboratory studies were ordered today. Next Appt Details Follow Up: To Schedule Surge ry, Reason: Provider Name:Bao Moralesler, 01/14/2025 07:00:00 AM, [address] [place] [address], [phone], Provider Name:Nicola Roland , 01/30/2025 10:40:00 AM, [address] [place] [address], [phone], Progress Notes * MADISON VU RDOB:[birth year] (89 yo F)Acc No.[id number]:12/02/2024 Patient:?MADISON VU :?Bao Iqbal, PADOB:1935???Age:89 Y ???Sex:FemaleDate:12/02/2024Phone:[phone]:[address] [facility], [id number] Subjective: * Chief Complaints: * 1 . [...] knee replacementsurgery scheduled for 01/15/2025 at the [facility]. Patient reports ongoing knee [...] ir regular heartbeat or heart murmur. Uses [facility] in [place]. ???Home-Going Plans:? The patient intends on returning [...] ???X-ray imaging of the right knee demonstrates fljl-hj-rghv contact with complete loss of cartilage, consistent [...] x-rays of the right knee obtained at [facility] at a previous appointment show loss [...] the office. This is on file at [facility]. Medical clearance is pending The above plan is a continuation of previous treatment plan set forth by or agreed upon by Dr. Nicola Salinas MD. Preoperative laboratory studies were ordered today.?? * Follow Up: T o Schedule Surgery Forms: * Images: * Electronic signature of Bao Iqbal PA-C on 01/10/2025 at 09:45 AM EDTSign off status: Pending * Provider: MARIO Allison Date: 0 12/02/2024 Generated for Printing/Faxing/eTransmitting on:?01/10/2025 09:45 AM EDT History and Physical Notes * [...] replacement surgery scheduled for 01/15/2025 at the [facility]. Patient reports ongoing knee [...] of irregular heartbeat or heart murmur. Uses [facility] in [place].SurgeonDr. Babar Salinas MDIndicationsRig knee painHome-Going PlansThe patient [...] x-rays of the right knee obtained at [facility] at a previous appointment show loss of medial joint line space, para-articular osteophyte formation, and subchondral sclerosis noted on examination today.These x-rays were reviewed and templated by Dr. Salinas for the upcoming surgery. X-ray Imaging StudiesX-ray imaging of the right knee demonstrates zxmk-fb-nhce contact with complete loss of cartilage, consistent [...]
--- OUTSIDE RECORDS SUMMARY | 2024-12-30 14:00 | XMS_ITS | Encounter Summary ---
Author Organization [facility] Address [address] [place] [address] Care Team Providers Care Sat Math Tutor Name Role Phone Vipul Cruz MD Primary Care Provider [phone] Reason for Referral * Imaging (Routine) - AuthorizedSpecialtyDiagnoses / ProceduresReferred By ContactReferred To ContactRadiology Diagnoses Type 2 diabetes mellitus without complication, without long-term current use of insulin (HCC) Abnormal EKG Dyspnea on exertion Procedures Stress test with myocardial perfusion Vipul Cruz MD [address] [address] Phone: tel: fax: [facility] CardioPulmonary [address] [facility], [address] Referral IDStatusReasonStart DateExpiration DateVisits RequestedVisits [id number]/20/20254/ * Imaging (Routine) - AuthorizedSpecialtyDiagnoses / ProceduresReferred By ContactReferred To ContactRadiology Diagnoses Aortic systolic murmur on examination Abnormal EKG Procedures Echocardiogram 2D complete Vipul Cruz MD 112 [facility] [address] [place] [address] Phone: tel: fax: [facility] [address] [place] [address] Phone: tel: fax: Referral IDStatusReasonStart DateExpiration DateVisits RequestedVisits [id number] Perform Procedure / Reason for Visit * ReasonCommentssurgical clearanceNeeds clearance for right TKA 01/15/[address] Anthony Salinas in [facility] completed Encounter Details DateTypeDepartmentCare Team (Latest Contact Info)Fwmlncdenct93/20/2025 2:00 PM EDTOffice Visit [facility] [address] [facility] [address] [place] [address] Vipul Cruz MD 112 [facility] [address] [place], [place] [id number] Acute sinusitis, recurrence not specified, unspecified location (Primary Dx); Primary osteoarthritis of right knee; Aortic systolic murmur on examination; Type 2 diabetes mellitus without complication, without long-term current use of insulin (HCC); Abnormal EKG; Dyspnea on exertion Social History Tobacco UseTypesPacks/DayYears UsedDateSmoking Tobacco: NeverPassive Smoke Exposure: NeverSmokeless Tobacco: NeverAlcohol UseStandard Drinks/WeekComments Never0 (1 standard drink = 0.6 oz pure alcohol)PHQ-2AnswerDate RecordedPatient Health Questionnaire-2 [id number] and Gender InformationValueDate RecordedSex Assigned at BirthNot on fileLegal SexFemale 05/25/2022 7:39 PM EDTGender IdentityNot on fileSexual OrientationNot on file documented as of this encounter Last Filed Vital Signs Vital SignReadingTime TakenCommentsBlood Tentodok756/7412/30/2024 1:39 PM EDT Smxqe810812/30/2024 1:39 PM EDTTemperature--Respiratory Rate--Oxygen Gkygxkacnz16% 12/30/2024 1:39 PM EDTInhaled Oxygen Concentration--Bmimha14.8 kg (176 lb) 12/30/2024 1:39 PM CGPAifyht448.7 cm (5' 8 )12/30/2024 1:39 PM EDTBody Mass Index26.7610/ 1:39 PM EDTdocumented in this encounter Progress Notes * Vipul Cruz MD - 12/30/2024 2:00 PM EDT Images from the original note were not included. HPI surgical clearance Additional comments: Needs clearance for right TKA 01/15/[address] Anthony Salinas in [facility] completed Last edited by Janet Jack LPN on 12/30/2024 1:44 PM. Subjective Patient ID: [place] Quach is a 89 y.o. female who presents for surgical clearance (Needs clearance for right TKA 01/15/[address] Anthony Salinas in [place]//[facility] completed). Pt has had right knee pain [...] OR CATARACT REMOVAL Bilateral 2008 HYSTERECTOMY 1971 [place] KNEE SCOPE,DIAGNOSTIC 08/2017 Dr. Lundberg Visit Vitals [...] A partial knee replacement was planned in [place], I cannot medically clear her until A1C improves and she has had a cardiac workup as outlined. Aortic systolic murmur on examination - Echocardiogram 2D complete; Future - By exam I suspect a degree of Aortic stenosis. Type 2 diabetes mellitus without complication, without long-term current use of insulin ([facility]) - Stress test with myocardial perfusion; Future [...] Plan of Treatment DateTypeDepartmentCare Team (Latest Contact Info)Dabtgtkezmx95/10/2025 9:15 AM ESTOffice Visit N[facility] [address] [place] [address] Vipul Cruz MD [address] [facility] [address] [place] [address] NameTypePriorityAssociated DiagnosesOrder ScheduleEchocardiogram 2D complete EchocardiographyRoutine Aortic systolic murmur on examination Abnormal EKG Expected: 12/30/2024 (Approximate), Expires: 12/30/2026Stress test with myocardial perfusionCardiac Nuclear MedicineRoutine Type 2 diabetes mellitus without complication, without long-term current use of insulin (HCC) Abnormal EKG Dyspnea on exertion Expected: 12/30/2024 (Approximate), Expires: 12/30/2026documented as of this encounter Procedures Procedure NamePriorityDate/TimeAssociated DiagnosisCommentsPOCT GLYCATED HEMOGLOBIN, VMVICGqxzryw42/20/2025 2:47 PM EDT Type 2 diabetes mellitus without complication, without long-term current use of insulin (HCC) documented in this encounter Results * POCT Glycated hemoglobin, total (12/30/2024 2:47 PM EDT)ComponentValueRef RangeTest MethodAnalysis TimePerformed AtPathologist SignatureHemoglobin A1C 8.0Specimen (Source)Anatomical Location / LateralityCollection Method / Volume Collection TimeReceived GwvpJyasf75/20/2025 2:47 PM EDT Narrative Authorizing ProviderResult TypeResult [...] MemberRelationshipSpecialtyStart DateEnd Date Vipul Cruz MD [address] [facility] [address] [place] [address] PCP - GeneralInternal Medicine07/21/22documented as of this encounter
--- OUTSIDE RECORDS SUMMARY | 2025-01-10 09:45 | XMS_ITS | Encounter Summary ---
Author Organization [facility] Address [address] [place] [address] Care Team Providers Care Manager Core Name Role Phone Vipul Cruz MD Primary Care Provider [phone] Encounter Details DateTypeDepartmentCare Team (Latest Contact Info)Zvqsekfvmqn99/20/2025amboo flowsheet [facility] [place] [facility] [address] [place] [phone] Vipul Cruz MD [address] [place] [address] [place], [place] [phone] Social History Tobacco UseTypesPacks/DayYears UsedDateSmoking Tobacco: NeverPassive Smoke Exposure: NeverSmokeless Tobacco: NeverAlcohol UseStandard Drinks/WeekComments Never0 (1 standard drink = 0.6 oz pure alcohol)PHQ-2AnswerDate RecordedPatient Health Questionnaire-2 Tztvm436CommentsUnknownSex and Gender InformationValueDate RecordedSex Assigned at BirthNot on fileLegal SexFemale 05/25/2022 7:39 PM EDTGender IdentityNot on fileSexual OrientationNot on file documented as of this encounter Plan of Treatment DateTypeDepartmentCare Team (Latest Contact Info)Ufwvvsqctig10/10/2025 9:15 AM ESTOffice Visit [facility] [place] [facility] [address] [place] [phone] Vipul Cruz MD [address] [place] [place], [place] [phone] documented as of this encounter Visit Diagnoses Not on filedocumented in this encounter Care Teams Team MemberRelationshipSpecialtyStart DateEnd Date Vipul Cruz MD 112 [facility] 110 [place] [address] PCP - GeneralInternal Medicine07/21/22documented as of this encounter
--- OUTSIDE RECORDS SUMMARY | 2025-01-10 09:45 | XMS_ITS | Encounter Summary ---
Author Organization [facility] Address [address] [place] [address] Care Team Providers Care Fur Vault Attendant Name Role Phone Vipul Cruz MD Primary Care Provider [phone] Encounter Details DateTypeDepartmentCare Team (Latest Contact Info)Jqxxzefkjbj02/22/2025bstract [facility] [place] [facility] [address] [facility] [address] [place] [phone] Vipul Cruz MD [address] [facility] 110 [place], [place] [phone] Social History Tobacco UseTypesPacks/DayYears UsedDateSmoking Tobacco: NeverPassive Smoke Exposure: NeverSmokeless Tobacco: NeverAlcohol UseStandard Drinks/WeekComments Never0 (1 standard drink = 0.6 oz pure alcohol)PHQ-2AnswerDate RecordedPatient Health Questionnaire-2 Fyyjn486CommentsUnknownSex and Gender InformationValueDate RecordedSex Assigned at BirthNot on fileLegal SexFemale 05/25/2022 7:39 PM EDTGender IdentityNot on fileSexual OrientationNot on file documented as of this encounter Plan of Treatment DateTypeDepartmentCare Team (Latest Contact Info)Mqtkbxkunjl68/10/2025 9:15 AM ESTOffice Visit [facility] [place] [facility] [address] [place] [address] Vipul Cruz MD [address] [place] [place], [place] [address] documented as of this encounter Visit Diagnoses Not on filedocumented in this encounter Care Teams Team MemberRelationshipSpecialtyStart DateEnd Date Vipul Cruz MD [address] [address] PCP - GeneralInternal Medicine07/21/22documented as of this encounter
--- OUTSIDE RECORDS SUMMARY | 2025-01-10 09:45 | XMS_ITS | Encounter Summary ---
Author Organization [facility] Address [address] [place] [address] Care Team Providers Care Machine Hostler Name Role Phone Vipul Cruz MD Primary Care Provider [phone] Encounter Details DateTypeDepartmentCare Team (Latest Contact Info)Wcuyjhzbhyy37/28/2025Telephone [facility] [place] [facility] [address] [place] [address] Vipul Cruz MD [address] [place], [place] [phone] Social History Tobacco UseTypesPacks/DayYears UsedDateSmoking Tobacco: NeverPassive Smoke Exposure: NeverSmokeless Tobacco: NeverAlcohol UseStandard Drinks/WeekComments Never0 (1 standard drink = 0.6 oz pure alcohol)PHQ-2AnswerDate RecordedPatient Health Questionnaire-2 Nicez453CommentsUnknownSex and Gender InformationValueDate RecordedSex Assigned at BirthNot on fileLegal SexFemale 05/25/2022 7:39 PM EDTGender IdentityNot on fileSexual OrientationNot on file documented as of this encounter Miscellaneous Notes * Telephone Encounter - LEONARDO CANAS - 01/07/2025 4:14 PM EDT [facility] called and since the patient's A1c is 8 or above they will not do surgery on 01/15/25. Patient notified. She has an appointment on 11/10 to check her A1c and if it's below 8.0 please call [facility] @ [phone] documented in this encounter Plan of Treatment DateTypeDepartmentCare Team (Latest Contact Info)Eaoycbbzxhi83/10/2025 9:15 AM ESTOffice Visit [facility] [place] [facility] [address] [facility] 110 [place] [address] Vipul Cruz MD [address] [facility] 110 [place] [address] documented as of this encounter Visit Diagnoses Not on filedocumented in this encounter Care Teams Team MemberRelationshipSpecialtyStart DateEnd Date Vipul Cruz MD [address] [facility] 110 [place] [address] PCP - GeneralInternal Medicine07/21/22documented as of this encounter
--- OUTSIDE RECORDS SUMMARY | 2025-01-10 09:46 | XMS_ITS | Clinical Summary ---
Author Organization [facility] Address [address] [place] [address] Care Team Providers Care Cold Patcher Name Role Phone Vipul Cruz MD Primary Care Provider [phone] Allergies No known active allergies Medications MedicationSigDispense QuantityRefillsLast FilledStart DateEnd DateStatus glimepiride (Amaryl) 1 MG tablet Indications:Type 2 diabetes mellitus without complication, without long-term current use of insulin (HCC)Take 1 tablet (1 mg) by mouth in the morning. Take before meals. 30 tablet 11151ctive amoxicillin-clavulanate (Augmentin) 875-125 MG tablet Indications:Acute sinusitis, recurrence not specified, unspecified locationTake 1 tablet (875 mg) by mouth in the morning and 1 tablet (875 mg) before bedtime. Do all this for 10 days. 20 tablet Expired Active Problems ProblemNoted DateDiagnosed DateAortic systolic murmur on acgkcxspkbw68/30/2024 Asymmetric SNHL (sensorineural hearing loss)01/04/2024ochlear hydrops of right ear01/04/2024Estrogen /24/5387Zvcvftccapiemf76/24/2024rimary osteoarthritis of left knee01/04/2024rimary osteoarthritis of right knee 01/04/2024ight-sided kagbasfq78/24/2024Type 2 diabetes mellitus without complication, without long-term current use of pfyabng8407/10/2023 Resolved Problems ProblemNoted DateDiagnosed DateResolved DateImpaired fasting muofytt8301/04/2024 01/10/2024 Encounters DateTypeDepartmentCare TrokFaelpmjpdpx53/28/2025Telephone [facility] [place] [facility] [address] [place] [address] [place] [address] Vipul Cruz MD 01/01/2025bstract [facility] [place] [facility] [address] [place] [place] [address] Vipul Cruz MD 12/30/2024 2:00 PM EDTOffice Visit [facility] [place] [facility] [address] [place] [address] [place] [address] Vipul Cruz MD Acute sinusitis, recurrence not specified, unspecified location (Primary Dx); Primary osteoarthritis of right knee; Aortic systolic murmur on examination; Type 2 diabetes mellitus without complication, without long-term current use of insulin (HCC); Abnormal EKG; Dyspnea on qomtqcrp81/20/2025amboo flowsheet [facility] [place] [facility] [address] [place] [address] Vipul Cruz MD 12/30/20241587Pepsav95/15/2025bstract [facility] [place] [facility] [address] [place] [address] Vipul Cruz MD 12/23/2024linisync Result Encounter NOMS External Department Unsolicited Provider, Generic External Data 12/23/2024linisync Result Encounter NOMS External Department Unsolicited Provider, Generic External Data 12/12/2024 8:00 AM EDTTreatment [facility] [place] [facility] [address] [place] [address] Karan Garner, SYNOPTIC METEOROLOGIST Unilateral primary osteoarthritis, right knee (Primary Dx)12/12/2024amboo flowsheet [facility] [place] [facility] [address] [place] [address] Karan Garner, SYNOPTIC METEOROLOGIST 12/12/20249787Egrmem90/29/2025 8:00 AM EDTTreatment [facility] [place] [facility] [address] [place] [address] Karan Garner, SYNOPTIC METEOROLOGIST Unilateral primary osteoarthritis, right knee (Primary Dx)12/09/2024 flowsheet [facility] [place] [facility] [address] [place] [address] Karan Garner, SYNOPTIC METEOROLOGIST 12/09/20247217Qqwxbf29/25/2025 8:00 AM EDTTreatment [facility] [place] [facility] [address] [place] [address] Karan Garner, SYNOPTIC METEOROLOGIST Unilateral primary osteoarthritis, right knee (Primary Dx)12/05/2024 flowsheet [facility] [place] [facility] [address] [place] [address] Karan Garner, SYNOPTIC METEOROLOGIST 12/05/20243607Fgiguq86/22/2025 12:30 PM EDTTreatment [facility] [place] [facility] [address] [place] [address] Cheli Lezama, SYNOPTIC METEOROLOGIST Unilateral primary osteoarthritis, right knee (Primary Dx)12/02/2024Travel 11/28/2024 8:00 AM EDTTreatment [facility] [place] [facility] [address] [place] [address] Laly Davis, PT Unilateral primary osteoarthritis, right knee (Primary Dx)11/28/2024 flowsheet [facility] [place] [facility] [address] [place] [address] Ryan Laly, PT 11/28/20248609Kdeygn43/15/2025 3:00 PM EDTTreatment [facility] [place] [facility] [address] [place] [address] Cheli Lezama, SYNOPTIC METEOROLOGIST Unilateral primary osteoarthritis, right knee (Primary Dx)11/25/2024 flowsheet [facility] [place] [facility] [address] [place] [address] KelCheli de, SYNOPTIC METEOROLOGIST 11/25/20243705Ohzeps07/11/2025 11:00 AM EDTOffice Visit [facility] [place] [facility] [address] [place] [address] Liz Dias, JESSICA Acute recurrent frontal sinusitis (Primary Dx); Acute cough11/21/2024 8:00 AM EDTTreatment [facility] [place] [facility] [address] [place] [address] Karan Garner, SYNOPTIC METEOROLOGIST Unilateral primary osteoarthritis, right knee (Primary Dx)11/21/2024Telephone [facility] [place] [facility] [address] [facility] [address] [place] [address] Vipul Cruz MD 11/21/20242021Dbovid07/08/2025 8:00 AM EDTTreatment [facility] [place] [facility] [address] [facility] [address] [place] [address] Karan Garner, SYNOPTIC METEOROLOGIST Unilateral primary osteoarthritis, right knee (Primary Dx)11/18/2024amboo flowsheet [facility] [place] [facility] [address] [facility] [address] [place] [address] Karan Garner, SYNOPTIC METEOROLOGIST 11/18/20245662Kftdxt43/04/2025 9:30 AM EDTEvaluation [facility] [place] [facility] [address] [facility] [address] [place] [address] Laly Davis, PT Unilateral primary osteoarthritis, right knee (Primary Dx)11/14/2024Plan of Care Documentation [facility] [place] [facility] [address] [place] [address] 11/14/2024amboo flowsheet [facility] [place] [facility] [address] [place] [address] Laly Davis, PT 11/14/2024Travelfrom Last 3 Months Immunizations ImmunizationAdministration DatesNext DuePneumococcal Polysaccharide PPSV23 01/15/2019 Family History Medical HistoryRelationNameCommentsHeart diseaseFatherHypertensionFatherRelation NameStatusCommentsFatherDeceasedMotherDeceased Social History Tobacco UseTypesPacks/DayYears UsedDateSmoking Tobacco: NeverPassive Smoke Exposure: NeverSmokeless Tobacco: Never Tobacco Cessation:Counseling Given: Yes Alcohol UseStandard Drinks/WeekCommentsNever0 (1 standard drink = 0.6 oz pure alcohol)PHQ-2AnswerDate RecordedPatient Health Questionnaire-2 Wkwjp529 CommentsUnknownSex and Gender InformationValueDate RecordedSex Assigned at BirthNot on fileLegal FafLkvynh82/15/2023 7:39 PM EDTGender IdentityNot on fileSexual OrientationNot on file Last Filed Vital Signs Vital SignReadingTime TakenCommentsBlood Llgaixrt334/7412/30/2024 1:39 PM EDT Qyctw673812/30/2024 1:39 PM EDTTemperature--Respiratory Uaig5946 10:47 AM EDTOxygen Shcegkiokp33%12/30/2024 1:39 PM EDTInhaled Oxygen Concentration-- Dzngat02.8 kg (176 lb)12/30/2024 1:39 PM KEXFaxcrp244.7 cm (5' 8 )12/30/2024 1:39 PM EDTBody Mass Index26.7612/30/2024 1:39 PM EDT Plan of Treatment DateTypeDepartmentCare Team (Latest Contact Info)Vwrvvpckceg62/10/2025 9:15 AM ESTOffice Visit [facility] [place] [facility] [address] [facility] 110 [place] [address] Vipul Cruz MD [address] [facility] [address] [place] [address] Health MaintenanceDue DateLast DoneCommentsDTaP/Tdap/Td Vaccines (1 - Tdap) 3Diabetes: Retinopathy Wvzgfzspk78/24/1946Diabetes: Urine Protein Usjfxitto15/24/1955COVID-19 Vaccine ( season)2024Influenza Vaccine (#1)2024Pneumococcal Vaccine: 65+ Years (2 of 2 - PCV)01/09/2025 01/15/2019Postponed from 01/16/2020 (Patient Refused)Diabetes: Hemoglobin A1C 61, 07/18/2024, 01/10/2024, Additional history existsMedicare Annual Wellness (AWV), 07/10/2023, 10/25/2021HIB Vaccines Aged OutNo longer eligible based on patient's age to complete this topicHPV VaccinesAged OutNo longer eligible based on patient's age to complete this topic Hepatitis A VaccinesAged OutNo longer eligible based on patient's age to complete this topicHepatitis B VaccinesAged OutNo longer eligible based on patient's age to complete this topicIPV VaccinesAged OutNo longer eligible based on patient's age to complete this topicMeningococcal B VaccineAged OutNo longer eligible based on patient's age to complete this topicMeningococcal VaccineAged OutNo longer eligible based on patient's age to complete this topicRotavirus VaccinesAged OutNo longer eligible based on patient's age to complete this topic Procedures Procedure NamePriorityDate/TimeAssociated DiagnosisCommentsPOCT GLYCATED HEMOGLOBIN, JMMSWNzzlwxa11/20/2025 2:47 PM EDT Type 2 diabetes mellitus without complication, without long-term current use of insulin (HCC) ECG 12-LEAD12/23/2024 9:19 AM EDT MRSA SCREENING MKKNMUBPyroozu31/13/2025 9:11 AM EDT ALL BASIC METABOLIC OMDLCFjvcuwq36/13/2025 9:10 AM EDT ALL CBC WITH AUTO RRATCxfaios30/13/2025 9:10 AM EDT from Last 3 Months Results * POCT Glycated hemoglobin, total (12/30/2024 2:47 PM EDT)ComponentValueRef RangeTest MethodAnalysis TimePerformed AtPathologist SignatureHemoglobin A1C 8.0Specimen (Source)Anatomical Location / LateralityCollection Method / Volume Collection TimeReceived JrrtVbgio38/20/2025 2:47 PM EDT Narrative Authorizing ProviderResult TypeResult StatusDakeya Cruz MDPOINT OF CARE TEST ENTER/EDIT ORDERABLESFinal Result * ECG 12-LEAD (12/23/2024 9:19 AM EDT)Anatomical RegionLateralityModalityOther Specimen (Source)Anatomical Location / LateralityCollection Method / Volume Collection TimeReceived Time12/23/2024 9:19 AM EDT Narrative 12/23/2024 12:58 PM EDT [facility] ?[address] ? [place] [address] ? Electrocardiograph Report ? Signed ? Patient: MADISON VU R ?MR#: [id number] ?? : 1935 ?Acct:[id number] ?? Age/Sex: 89 / F ?ADM Date: 12/23/24 ?? Loc: LAB ? Attending Dr: MINNA REY ? Ordering Physician: MINNA REY ?? Date of Service: 12/23/24 ?? Procedure(s): ECG 12 lead ?? Accession Number(s): [id number] ? cc: ?[facility] ? Test Date: ?2024-12-23 ?? Pat Name: ? MADISON VU ?Department: ? Room: ? - ?? Gender: ? Female ? Digital Account Coordinator: ? : ?1935 ? Requested By: [id number] ?? Order Number: [id number] ?Reading : ?? SUSAN ??Zack LEE ? Measurements ?? Intervals ?[place] ? Rate: ? 74 ? P: ?56 ?? WI: ? 153 ?QRS: ?-35 ?? QRSD: ? 88 ? T: ?77 ?? QT: ? 363 ? QTc: ?405 ? Interpretive Statements ?? SINUS RHYTHM WITH SINUS ARRHYTHMIA ?? POSSIBLE LEFT ATRIAL ENLARGEMENT [-0.1mV P WAVE IN V1/V2] ?? MARKED LEFT AXIS DEVIATION [QRS AXIS < -30] PATTERN CONSISTENT WITH PULMONARY DISEASE ?? Abnormal ECG ?? No previous ECG available for comparison ?? Electronically Signed On 12-23-2024 12:57:57 EDT by SUSAN ??Zack LEE ? Dictated By: ?SUSAN LEE ? Signed By: ?12/23/24 1258 ?12/23/24 1258 ? DD/ 0919 ? TD/TT: ? Office Inspector: Procedure Note Radiology, Radiologist, - 12/23/2024 [place] [address] Electrocardiograph Report Signed Patient: MADISON VU R#: [id number] : 6Acct:[id number] Age/Sex: 89 / FADM Date: 12/23/24 Loc: LAB Attending Dr: MINNA REY Ordering Physician: MINNA REY Date of Service: 12/23/24 Procedure(s): ECG 12 lead Accession Number(s): [id number] [facility]: [facility] Test Date: 2024-12-23 Pat Name: MADISON VU Department: Room: - Gender: Female Digital Account Coordinator: : 1935 Requested By: [id number] Order Number: [id number] Reading MD: SUSAN LEE M.D. Measurements Intervals [place] Rate: 74 P: 56 WI: 153 QRS: -35 QRSD: 88 T: 77 QT: 363 QTc: 405 Interpretive Statements SINUS RHYTHM WITH SINUS ARRHYTHMIA POSSIBLE LEFT ATRIAL ENLARGEMENT [-0.1mV P WAVE IN V1/V2] MARKED LEFT AXIS DEVIATION [QRS AXIS < -30] PATTERN CONSISTENT WITH PULMONARY DISEASE Abnormal ECG No previous ECG available for comparison Electronically Signed On 12-23-2024 12:57:57 EDT by SUSAN LEE M.D. Dictated By: SUSAN LEE Signed By:12/23/24 1258 12/23/24 1258 DD/ 0919 TD/TT: Office Inspector: Authorizing ProviderResult TypeResult StatusGeneric External Data Provider [facility]NC IMAGINGFinal Result * MRSA SCREENING CULTURE (12/23/2024 9:11 AM EDT)ComponentValueRef RangeTest MethodAnalysis TimePerformed AtPathologist SignatureMRSASCRN1 ??MRSA Screening Culture EHEXRFAEAJX7XjpadkkvAJQWEBTJWTD4Levvthghf at: - [facility] JewellTBHMRSASCRN1 [address] [place], [place] [address]XGHXUCBAFXV2Uof Director: Irvin Black PhD, Phone: [phone] (Source)Anatomical Location / LateralityCollection Method / VolumeCollection TimeReceived Time12/23/2024 9:11 AM EDT1 9:14 AM EDT Narrative [facility] - 12/25/2024 9:09 AM EDT Authorizing ProviderResult TypeResult StatusGeneric External Data ProviderLAB BLOOD ORDERABLESFinal ResultPerforming OrganizationAddressCity/State/ZIP Code Phone Number [facility] * (ABNORMAL) ALL CBC WITH AUTO DIFF (12/23/2024 9:10 AM EDT)ComponentValueRef RangeTest MethodAnalysis TimePerformed AtPathologist SignatureTBH WBC4.84.0 - 11.0 10 3/uLTBHTBH RBC4.834.20 - 5.40 10 6/uLTBHTBH HGB14.012.0 - 16.0 g/dLTBH TBH HCT43.136.0 - 48.0 %TBHTBH MCV89.281.0 - 99.0 fLTBHTBH MCH29.026.7 - 34.0 pgTBHTBH MCHC32.529.9 - 35.2 g/dLTBHTBH RDW13.411.0 - 15.0 %TBHTBH AMY610800 - 450 10 3/uLTBHTBH MPV10.39.5 - 13.5 fLTBHNEUTROPHILS PERCENT AUTO56.043.0 - 75.0 %TBHLYMPHOCYTES PERCENT AUTO30.120.5 - 60.0 %TBHMONOCYTES PERCENT AUTO 10.21.7 - 12.0 %TBHTBH EO %2.10.9 - 7.0 %TBHBASOPHILS PERCENT AUTO0.80.2 - 2.0 %TBHIMMATURE GRANULOCYTES PCT AUTO0.8(H)0.0 - 0.5 %TBHNEUTROPHILS ABSOLUTE AUTO2.71.4 - 6.5 10 3/uLTBHLYMPHOCYTES ABSOLUTE AUTO1.51.2 - 3.8 10 3/uLTBH MONOCYTES ABSOLUTE AUTO0.50.3 - 0.8 10 3/uLTBHTBH EO #0.10.0 - 0.7 10 3/uLTBH BASOPHILS ABSOLUTE AUTO0.00.0 - 0.1 10 3/uLTBHIMMATURE GRANULOCYTES ABS AUTO 0.04(H)0.00 - 0.03 10 3/uLTBHSpecimen (Source)Anatomical Location / Laterality Collection Method / VolumeCollection TimeReceived Time12/23/2024 9:10 AM EDT 12/23/2024 9:14 AM EDT Narrative [facility] - 12/23/2024 9:24 AM EDT Authorizing ProviderResult TypeResult StatusGeneric External Data Provider CLINISYNCFinal ResultPerforming OrganizationAddressty/State/ZIP CodePhone Number [facility] * (ABNORMAL) ALL BASIC METABOLIC PANEL (12/23/2024 9:10 AM EDT)ComponentValueRef RangeTest MethodAnalysis TimePerformed AtPathologist GyhkzjfdlPOSVRU238648 - 145 mmol/LTBHPOTASSIUM4.73.5 - 5.1 mmol/TNCQOETIFZAG27097 - 107 mmol/LTBH [place] HOGGPVU58.021.0 - 32.0 mmol/LTBHANION GAP15.8ZOOWFOXXFI576(H)74 - 106 mg/dLTBHBLOOD UREA GFQJKGHK32.07.0 - 18.0 mg/dLTBHCREATININE0.870.55 - 1.02 mg/dLTBHTBH EGFR-AF ROMANIAN>60>=60 mL/min/1.73m 2TBHTBH EGFR-NON AF ROMANIAN >60>=60 mL/min/1.73m 2TBHBUN CREATININE RATIO18.8IBVTCEYBDF7.88.5 - 10.1 mg/dL TBHSpecimen (Source)Anatomical Location / LateralityCollection Method / Volume Collection TimeReceived Time12/23/2024 9:10 AM EDT1 9:14 AM EDT Narrative [facility] - 12/23/2024 9:49 AM EDT BILATERAL NARES Authorizing ProviderResult TypeResult StatusGeneric External Data Provider CLINISYNCFinal ResultPerforming OrganizationAddConemaugh Miners Medical Centerty/State/ZIP CodePhone Number [facility] from Last 3 Months Insurance Care Teams Team MemberRelationshipSpecialtyStart DateEnd Date Vipul Cruz MD 112 [facility] [address] [place] [address] PCP - GeneralInternal Medicine07/21/22
--- OUTSIDE RECORDS SUMMARY | 2025-01-10 09:46 | XMS_ITS | Patient Health Record ---
Author Organization [facility] Address [address] [place] [address] Care Team Providers Care Curator Zoological Museum Name Role Phone Nicola Salinas Unavailable [phone] Bao Iqbal Unavailable [phone] Allergies No Known Allergies Results Component Value Reference Range Notes Surgery Scheduling (Not yet reviewed by provider) Interpretation: Performing Lab: Notes/Report: Social Sec number: [id number] Primary Insurance Company:Anthem MedicareSurgeon/Assist:Brad / Bao Assist Surgery Location:[facility] Date & Time:01/15/25, 12:30 pmHosp arrival time day of:9:30am (PER JAM)Surgery End Time:2hr 00minProcedure:Right Jiffy TKRSpecial Equipment:Routine - [employer]Arm:NoDiagnosis:Right Knee OAAdmission Type: 23hr ObsvAnesthesia Type/CPNB:Spinal vs GeneralBedSupineLatex AllergyNoLab Location:[facility] Date/TYes, Please call patient Jig And Fixture Maker:Aby [id number] Physician:Dr. Jason Cruz ([facility])History & Physical Appointment Date/:DonePT Appointment Date/Time:To Begin Nov 7 or 10Had or have MRSA/Direct contact w MRSA pt/HCWNo Reason For Referral Reason CANCELLED - APPROVED - Right Total Knee Replacement at [facility] 01/15/25, 23hr Obsv Diagnosis 1 Primary osteoarthrit is of right knee (M17.11) Referral Organization [facility] Referring Provider First Name Nicola Referring Provider Last Name Brad Referring Provider Speciality Orthopedic Surgery Referred Organization [facility] Referred Address [address],[id number], Procedure 1 Arthroplasty Knee To allen Med/Lat Compartments ([address]) General Notes Stephanie Chowdary 01:59:08 PM > AUTH WAS APPROVED THROUGH [facility] APPROVED DATES ARE FROM 01/15/2025 - 04/14/2025 AUTH# [id number], AUTH IN CHART, Porsche Roque 12/25/2024 09:57:10 AM > Jude EPPERSON Elizabeth 01/07/2025 04:18:34 PM > Surgery Cancelled per PCP. HGA1C is 8.0. Will send back when re-scheduled. Epi EPPERSON Kaitlynn 01/08/2025 09:21:34 AM >NOTED. Referral Priority Routine Social History Tobacco Use: Social History Observation Description Date Details (start date - stop date) Never Smoker NA - NA AUDIT-C (Standard) Question Answer Notes Did you have a drink containing alcohol in the p ast year? No Kgjpyp3ZvlpzuyjfngijmGfidndfxVgpwoyx Control (Standard) Question Answer Notes Tobacco use: Nonsmoker Problems Problem Type SNOMED Code ICD Code Onset Dates Problem Status W/U Status Risk Notes Problem Osteoarthritis of knee (06567774 7) Primary osteoarthritis of right knee (M17.11) Activeconfirmed Vital Signs Height 68 in 11/04/2024 Wwhbiq007 lbs11/04/2024BMI27.37011/04/2024 Encounters Encounter Location Date Provider Diagnosis [facility] [address] [place] [phone] 12/02/2024 Bao Farida Primary osteoarthrit is of right knee M17.11 [facility] [address] [place] [phone] 11/04/2024 Bao Farida Primary osteoarthrit is of right knee M17.11 Assessments Encounter Date Diagnosis (ICD Code) Assessment Notes Treatment Notes Treatment Clinical Notes Section Notes 11/04/2024 Primary osteoarthritis of right knee (ICD-10 - M17.11) 12/02/2024Primary osteoarthritis of right knee (ICD-10 - M17.11)12/02/2024Other The nature treatment and recovery of this [...] the office. This is on file at [facility]. Medical clearance is pending The above plan is a continuation of previous treatment plan set forth by or agreed upon by Dr. Nicola Salinas MD. Preoperative laboratory studies were ordered today. 11/04/2024Other 1. Given the severity of Madison Vu's symptoms and failure of conservative treatments including multiple injection therapies, discussed surgical options for right knee osteoarthritis. 2. Explained that arthroscopic debridement would not provide significant long- term improvement given the extent of cartilage loss, [...] pre-surgical function levels. 5. However, given Madison [place]'s functional limitations and pain level, this represents [...] and desire to proceed with surgery to regainfunction, specifically mentioning the goal of being able to mow the yard next year.HPI: Plan Of Treatment Pending Test Test Name Order Date Surgery Scheduling 12/03/2024 PT EVAL AND TREAT 11/04/2024 JAM-KNEE, RIGHT 3V [id number] 11/04/2024 Pre-Op Testing Orders 12/03/2024 Next Appt Details Provider Name:Bao Iqbal, 01/14/2025 07:00:00 AM, [address] [place] [address], [phone], Provider Name:Nicola Roland , 01/30/2025 10:40:00 AM, [address] [place] [address], [phone], Insurance Providers Payer Name Payer Address Payer Phone Subscriber Number Group Number Insured Name Patient Relationship to Insured Coverage Start Date Coverage End Date Medicare [employer] [address] [place] [phone] [id number] [facility] M[place] VU Self - patient is the insured MedicarePO [address] [address] [place] [id number], ELSIESelf - patient is the [id number] 2024 Medical (General) History Surgical History Surgery Date(Month/Year) Hysterectomy
--- OUTSIDE RECORDS SUMMARY | 2025-01-10 09:46 | XMS_ITS | Encounter Summary ---
Author Organization [facility] Address [address] [place] [address] Care Team Providers Care Digester Cook Name Role Phone Vipul Cruz MD Primary Care Provider [phone] Encounter Details DateTypeDepartmentCare Team (Latest Contact Info)Ioydpgjulix70/20/2025Travel Social History Tobacco UseTypesPacks/DayYears UsedDateSmoking Tobacco: NeverPassive Smoke Exposure: NeverSmokeless Tobacco: NeverAlcohol UseStandard Drinks/WeekComments Never0 (1 standard drink = 0.6 oz pure alcohol)PHQ-2AnswerDate RecordedPatient Health Questionnaire-2 Wxpgc520CommentsUnknownSex and Gender InformationValueDate RecordedSex Assigned at BirthNot on fileLegal SexFemale 05/25/2022 7:39 PM EDTGender IdentityNot on fileSexual OrientationNot on file documented as of this encounter Plan of Treatment DateTypeDepartmentCare Team (Latest Contact Info)Injhhkhjdjc51/10/2025 9:15 AM ESTOffice Visit [facility] [address] [place] [address] Vipul Cruz MD [address] [place], [place] [phone] documented as of this encounter Visit Diagnoses Not on filedocumented in this encounter Care Teams Team MemberRelationshipSpecialtyStart DateEnd Date Vipul Cruz MD [address] [place] [address] PCP - GeneralInternal Medicine07/21/22documented as of this encounter
--- NOTE | 2025-01-10 10:00 | CA_ITS ---
Patient Name: RAISA VU MR#: [id number] : 1935 Exam Date: 01/10/2025 Ordering Doctor: DR ALANA QUICK M.D. ECHOCARDIOGRAM REPORT PROCEDURE: CA ECHO DOPPLER COMPLETE INDICATIONS: Abnormal ECG, murmur, diabetes COMPARISON: None. DESCRIPTION: COMPLETE ECHOCARDIOGRAM Real-time transthoracic echocardiography with 2D, M-mode, spectral and color flow Doppler performed. QUALITY: Technical quality was good. LEFT VENTRICLE: Normal chamber size. Thickened septal wall. LV EF: Global left ventricular systolic function is normal; visually estimated ejection fraction is 55 to 60%. No significant wall motion abnormalities. DIASTOLIC: Unable to assess diastolic function. ATRIAL SEPTUM: Inadequately seen. LEFT ATRIUM: Normal chamber size. RIGHT ATRIUM: Normal chamber size. RIGHT VENTRICLE: Mildly dilated. Normal systolic function. TRICUSPID VALVE: Normal mobility and thickness. No stenosis with mild to moderate regurgitation. Doppler studies reveal mildly (35-45) elevated right sided pressures. RVSP 36 mmHg MITRAL VALVE: Mildly thickened with normal mobility. Severe mitral annular calcification. Trivial mitral regurgitation. AORTIC VALVE: Normal trileaflet appearance. Moderately calcified aortic valve. Severely diminished mobility. Doppler velocity suggests moderate aortic valve stenosis. DVI 0.27, ALEC 0.8 cm2, mean 30 mmHg, Vmax 3.58 m/sec. Mild aortic regurgitation. AORTIC ROOT: Normal diameter and appearance. Ascending aorta is normal in size. PULMONIC VALVE: Normal thickness and mobility. No stenosis. No regurgitation. PERICARDIUM: No evidence of pericardial effusion. IVC: Not well visualized. CONCLUSION: 1. Global left ventricular systolic function is normal; visually estimated ejection fraction is 55 to 60% 2. The right ventricle is mildly dilated with normal systolic function 3. The left atrium is normal in size 4. Mild to moderate tricuspid regurgitation 5. Mildly elevated right ventricular systolic pressure; RVSP 36 mmHg 6. Moderate aortic valve stenosis; mild aortic valve regurgitation Adult Echocardiography Procedure Report Left Ventricle LVEDD (3.7 - 5.6 cm): 4.06 cm LVESD (2.2 - 4.0 cm): 3.04 cm LVIVS thickness (0.6 - 1.2 cm): 1.56 cm LVPW thickness (0.5 - 1.0 cm): 1.01 cm LVOT Max Gradient: 3.74 mm[Hg] LVOT Area (cm2): 0.97 m/s Peak Velocity (LVOT): 0.97 m/s Mean Velocity (LVOT): 0.55 m/s LVOT Diameter 2.08 cm Left Ventricular Ejection Fraction: 63.87 % Left Atrium LA Volume Index (2D A2C): 32.84 ml/m2 Left Atrium Systolic Dimension: 2.62 cm Mitral Valve MV E to A Ratio: 0.60 Mitral Valve A-Wave Peak Velocity: 1.44 m/s Mitral Valve E-Wave Peak Velocity: 0.87 m/s Right Ventricle Aorta AO Root Diam: 3.19 cm Ascending Ao Diam: 2.85 cm Aortic Valve AoV Area (Peak Deshawn): 0.92 cm2, 1.05 cm2 AoV Area (VTI): 0.84 cm2, 0.98 cm2 Deceleration Long: 2.53 m/s2, 1.40 m/s2 Pressure Half-Time: 422.33 ms, 751.27 ms Peak Velocity(Antegrade Flow): 3.12 m/s, 3.58 m/s Peak Gradient(Antegrade Flow): 39.02 mm[Hg], 51.16 mm[Hg] Mean Velocity(Antegrade Flow): 2.36 m/s, 2.52 m/s Mean Gradient(Antegrade Flow): 24.46 mm[Hg], 30.27 mm[Hg] Velocity Time Integral: 75.57 cm, 88.31 cm Tricuspid Valve Peak Velocity (Regurgitant Flow): 2.47 m/s, 2.46 m/s, 2.88 m/s Pulmonic Valve Mean Gradient: 1.46 mm[Hg], 1.40 mm[Hg] Mean Velocity: 0.58 m/s, 0.56 m/s Peak Gradient: 2.63 mm[Hg], 2.54 mm[Hg] Right Atrium Right Atrium Systolic Pressure: 56.50 ml, 56.50 ml Dictated by: Jessica Siegel M.D. on 01/10/2025 at 16:04 Approved by: Jessica Siegel M.D. on 01/10/2025 at 16:10
== END 2025-01-10 09:44 | disposition home or self-care (01) ==
LOC: CARD 09:44
PROVIDERS: PCP Internal Medicine; Visit Provider Internal Medicine
DX: I35.8 Other nonrheumatic aortic valve disorders (principal); R94.31 Abnormal electrocardiogram [ECG] [EKG]
CPT/HCPCS: 93306

== ENCOUNTER 2025-01-13 07:14 | Outpatient (OUT) | payer MEDICARE, SELFPAY ==
--- OUTSIDE RECORDS SUMMARY | 2024-12-02 04:20 | XMS_ITS ---
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 No Cgjqiw2DwiabjavxlvxhrBvefftwoRyzbmom Control (Standard) Question Answer Notes Tobacco use: Nonsmoker Encounters Encounter Location Date Provider Diagnosis [facility] [address] [place] [address] 12/02/2024 Bao Iqbal Primary osteoarthrit is of right knee M17.11 Assessments Encounter Date Diagnosis (ICD Code) Assessment Notes Treatment Notes Treatment Clinical Notes Section Notes 12/02/2024 Primary osteoarthritis of right knee (ICD-10 - M17.11) 12/02/2024Other The nature treatment and recovery of this condition were explained to the patient. The patient is very much in agreement with the treatment and/or diagnostic plan set forth and all questions were answered to the patient and son's satisfaction. Patient is scheduled for right total knee replacement surgery on January 15. The procedure will involve placement of new metal surfaces on the end of the femur and new metal and plastic surfaces onthe end of the tibia. Surgical approach will be performed between muscles rather than cutting through muscle and tendon. Given patient's age, overnight hospitalization is planned. Patient education provided regarding the total knee replacement procedure using anatomical models. Planned Procedure: Right TKA Informed Consent: For the above diagnosis and intended procedure, an informed consent was obtained with the patient. The nature of the condition and the procedure, purpose of the procedure, all the materials, risks, and benefits of the recommended procedure were discussed; the recovery and the alternatives to the procedure and the consequences of the alternative treatments as well as the consequences of not following through with the intended procedure were discussed with the patient. Possible complications noted with the associated procedure were discussed with the patient including, but notlimited to, infection, DVT, nerve damage, tissue damage, wound healing complications, LLD, fx, and d islocation. All their questions were answered to the patient's satisfaction, and the consent form was signed in the office. This is on file at [facility]. Medical clearance is pending The above plan is a continuation of previous treatment plan set forth by or agreed upon by Dr. Nicola Salinas MD. Preoperative laboratory studies were ordered today. Plan Of Treatment Treatment Notes Assessment Notes Other The nature treatment and recovery of this condition were explained to the patient. The patient is very much in agreement with the treatment and/or diagnostic plan set forth and all questions were answered to the patient and son's satisfaction. Patient is scheduled for right total knee replacement surgery on January 15. The procedure will involve placement of new metal surfaces on the end of the femur and new metal and plastic surfaces on the end of the tibia. Surgical approach will be performed between muscles rather than cutting through muscle and tendon. Given patient's age, overnight hospitalization is planned. Patient education provided regarding the total knee replacement procedure using anatomical models. Planned Procedure: Right TKA Informed Consent: For the above diagnosis and intended procedure, an informed consent was obtained with the patient. The nature of the condition and the procedure, purpose of the procedure, all the materials, risks, and benefits of the recommended procedure were discussed; the recovery and the alternatives to the procedure and the consequences of the alternative treatments as well as the consequences of not following through with the intended procedure were discussed with the patient. Possible complications noted with the associated procedure were discussed with the patient including, but not limited to, infection, DVT, nerve damage, tissue damage, wound healing complications, LLD, fx, and dislocation. All their questions were answered to the patient's satisfaction, and the consent form was signed in the office. This is on file at [facility]. Medical clearance is pending The above plan is a continuation of previous treatment plan set forth by or agreed upon by Dr. Nicola Salinas MD. Preoperative laboratory studies were ordered today. Next Appt Details Follow Up: To Schedule Surge ry, Reason: Provider Name:Bao Moralesler, 01/14/2025 07:00:00 AM, [address] [place] [address], [phone], Provider Name:Nicola Roland , 01/30/2025 10:40:00 AM, [address] [place] [address], [phone], Progress Notes * MADISON VU RDOB:[birth year] (89 yo F)Acc No.[id number]:12/02/2024 Patient:?MADISON VU :?Bao Iqbal, PADOB:1935???Age:89 Y ???Sex:FemaleDate:12/02/2024Phone:[phone]:[address] [facility], [id number] Subjective: * Chief Complaints: * 1 . JAM - Right Knee OA, Sympt Check. * HPI: ???HandP:? Madison VU presents for right total knee replacement consultation. Patient reports chronic right knee pain secondary to severe arthritis. Previous treatment with cortisone injections was initially effective but no longer provides relief. Patient states she can't wait to be pain-free and has decided it's time to do something constructive about the condition. ???Surgeon:? Dr. Babar Salinas MD. ???Procedure Location:? [facility]. ???Hospital Status:? The patient's hospital status will be considered as 23 hour observation. ???HPI:? The following note will serve as both clinical documentation for today's visit and surgical history and physical. Madison Vu is an 89-year-old female presenting for pre-operative history and physical examination in preparation for right total knee replacementsurgery scheduled for 01/15/2025 at the [facility]. Patient reports ongoing knee pain that varies with weather conditions, with yesterday being particularly difficult due to weather changes. She has undergone previous intra-articular knee injections, initially starting with Uflexa which provided good relief until it was discontinued. Subsequent injections with other medications have been less effective, with the most recent injection described as like putting water in my knee. Patient is currently participating in physical therapy and reports significant improvement, noting she is now able to get up from furniture and bed without assistance during therapy sessions. Pain comes and goes but continues to be problematic. Patient denies diabetes, kidney disease,heart attack, stroke, blood clots, smoking, or alcohol use. She takes no medications currently. Allergic to cough syrup which causes facial flushing. No known allergies to penicillin. No history of ir regular heartbeat or heart murmur. Uses [facility] in [place]. ???Home-Going Plans:? The patient intends on returning home after their hospital stay. ???Post-Operative Pain Management:? Patient denies any specific needs for pain medication. We willutilize normal pain protocol. ???DVT Prophylaxis:? On evaluation of the patient's past medical history she makes risk stratification for the use of aspirin 81 mg 1 tab twice daily #60 for DVT prophylaxis. ???Indications:? Right knee pain. * ROS: ???Unchanged from xx/xx/xxxx. * Medical History: M edical History Verified. * Surgical History: H ysterectomy . * Family History: M other: diagnosed with Stroke. F ather: diagnosed with Heart trouble. * Social History: E xercise regularly: No . W hat is your place of residence?: home . A GURDEEP-C (Standard) D id you have a drink containing alcohol in the past year? N o, P oints 0 , I nterpretation N egative. T obacco Control (Standard) T obacco use: N onsmoker. * Allergies: N .K.D.A. Objective: * Vitals: * Examination: ???X-ray Imaging Studies: ???X-ray imaging of the right knee demonstrates sxlo-wj-axmx contact with complete loss of cartilage, consistent with severe degenerative joint disease. ???Right Lower Extremity: ???Right knee examination reveals maximum flexion of approximately 112 degrees. Patient unable to achieve full extension with a 12-degree flexion contracture present, which is consistent with arthritic changes. Knee cap demonstrates some mobility on examination. Examination of the right lower extremity shows a full range of motion, 5 out of 5 strength of the left hip, knee, ankle, subtalar, and phalangeal joints. Good pedal pulses. Capillary refills less than 2 seconds. The patient is neurologically intact distally. Deep tendon reflexes are intact. No lymph adenopathy is noted.Range of motion of the knee is 0-120 degrees. There is point tenderness to touch over the medial joint line. Patient has pseudo-laxity with a valgus stress test. Negative anterior drawer, posterior drawer, Edison. ???General examination: ???General: Patient is alert and oriented x4. Well-dressed, well-groomed and pleasant in the office today. Patient is in no acute distress. Abdominal: Normal bowel sounds were auscultated in all quadrants. The abdomen was soft and nontender. No organomegaly or pulsatile masses were noted on exam. specific exam: X-ray Imaging studies: Three-view x-rays of the right knee obtained at [facility] at a previous appointment show loss of medial joint line space, para-articular osteophyte formation, and subchondral sclerosis noted on examination today.These x-rays were reviewed and templated by Dr. Salinas for the upcoming surgery. ???HEENT: ???The patient is normocephalic, atraumatic. Pupils are equal and reactive to light.Extraocular motions are intact x3. Oral mucosa is pink and moist. Uvula is midline. The neck is soft and supple with a full range of motion. No masses were palpated on examination today, and no bruits were auscultated on examination. Cranial nerves II through XII are grossly intact. ???Cardiovascular: ???Normal rate and rhythm auscultated on examination today. No rubs, murmurs or gallops are noted. ???Pulmonary: ???Normal vesicular breath sounds were auscultated in all nieves. No rales, wheezes or rhonchi were noted. On examination today. ???Left Upper Extremity: ???Examination of the left upper extremity shows full range of motion 5-5 strength of the left shoulder, elbow, wrist, thumb and phalangeal joints. Good radial pulse. Capillary refill is less than 2 seconds. The patient is neurovascularly intact distally. Deep tendon reflexes are intact. No lymphadenopathy is noted on examination. ???Left Lower Extremity: ???Examination of the left lower extremity shows a full range of motion 5-5 strengthof the left hip, ankle, subtalar, and phalangeal joints. Good pedal pulses. Capillary refills less than 2 seconds. The patient is neurologically intact distally. Deep tendon reflexes are intact. No lymphadenopathy is noted on examination. ???Right Upper Extremity: ???Examination of the right upper extremity shows a full range of motion and 5 out of 5 strength of the right shoulder, elbow, wrist, thumb and phalangeal joint. Good pedal pulses. Capillary refills less than 2 seconds. The patient is neurologically intact distally. Deep tendon reflexes are intact. No lymphadenopathy is noted on examination. ??? Assessment: * Assessment: 1.?Primary osteoarthritis of right knee - M17.11 (Primary)??? Plan: * Treatment: Notes: The nature treatment and recovery of this condition were explained to the patient. The patient is very much in agreement with the treatment and/or diagnostic plan set forth and all questions were answered to the patient and son's satisfaction. Patient is scheduled for right total knee replacement surgery on January 15. The procedure will involve placement of new metal surfaces on the end of the femur and new metal and plastic surfaces onthe end of the tibia. Surgical approach will be performed between muscles rather than cutting through muscle and tendon. Given patient's age, overnight hospitalization is planned. Patient education provided regarding the total knee replacement procedure using anatomical models. Planned Procedure: Right TKA Informed Consent: For the above diagnosis and intended procedure, an informed consent was obtained with the patient. The nature of the condition and the procedure, purpose of the procedure, all the materials, risks, and benefits of the recommended procedure were discussed; the recovery and the alternatives to the procedure and the consequences of the alternative treatments as well as the consequences of not following through with the intended procedure were discussed with the patient. Possible complications noted with the associated procedure were discussed with the patient including, but notlimited to, infection, DVT, nerve damage, tissue damage, wound healing complications, LLD, fx, and d islocation. All their questions were answered to the patient's satisfaction, and the consent form was signed in the office. This is on file at [facility]. Medical clearance is pending The above plan is a continuation of previous treatment plan set forth by or agreed upon by Dr. Nicola Salinas MD. Preoperative laboratory studies were ordered today.?? * Follow Up: T o Schedule Surgery Forms: * Images: * Electronic signature of Bao Iqbal PA-C on 01/13/2025 at 07:17 AM ESTSign off status: Pending * Provider: MARIO Allison Date: 0 12/02/2024 Generated for Printing/Faxing/eTransmitting on:?01/13/2025 07:17 AM EST History and Physical Notes * HPI (History of Present Illness) CategorySub-CategoryDetailNotesCategory NotesHandPEtamanna VU presents for right total knee replacement consultation. Patient reports chronic rightknee pain secondary to severe arthritis. Previous treatment with cortisone injections was initiallyeffective but no longer provides relief. Patient states she can't wait to be pain-free and has decided it's time to do something constructive about the condition.HPIThe following note will serve as both clinical documentation for today's visit and surgical historyand physical. Madison Vu is an 89-year-old female presenting for pre-operative history and physical examination in preparation for right total knee replacement surgery scheduled for 01/15/2025 at the [facility]. Patient reports ongoing knee pain that varies with weather conditions, with yesterday being particularly difficult due to weather changes. She has undergone previous intra-articular knee injections, initially starting with Uflexa which provided good relief until it was discontinued. Subsequent injections with other medications have been less effective, with the most recent injection described as like putting water in my knee. Patient is currently participating in physical therapy and reports significant improvement, noting she is now able to get up from furniture and bed without assistance during therapy sessions. Pain comes and goes but continues to be problematic. Patient denies diabetes, kidney disease, heart attack, stroke, blood clots, smoking, oralcohol use. She takes no medications currently. Allergic to cough syrup which causes facial flushing. No known allergies to penicillin. No history of irregular heartbeat or heart murmur. Uses [facility] pharmacy in [place].SurgeonDr. Babar Salinas MDIndicationsRig knee painHome-Going PlansThe patient intends on returning home after their hospital stay.Post- Operative Pain ManagementPatient denies any specific needs for pain medication. We will utilize normal pain protocol.DVT ProphylaxisOn evaluation of the patient's past medical history she makes risk stratification for the use of asp irin 81 mg 1 tab twice daily #60 for DVT prophylaxisProcedure Location[facility] Hospital StatusThe patient's hospital status will be considered as 23 hour observation. Examination CategorySub-CategoryDetailNotesCategory NotesGeneral examination General: Patient is alert and oriented x4. Well-dressed, well-groomed and pleasant in the office today. Patient is in no acute distress. Abdominal: Normal bowel sounds were auscultated in all quadrants. The abdomen was soft and nontender. No organomegaly or pulsatile masses were noted on exam. specific exam: X-ray Imaging studies: Three-view x-rays of the right knee obtained at [facility] at a previous appointment show loss of medial joint line space, para-articular osteophyte formation, and subchondral sclerosis noted on examination today.These x-rays were reviewed and templated by Dr. Salinas for the upcoming surgery. X-ray Imaging StudiesX-ray imaging of the right knee demonstrates dmpq-lz-bbam contact with complete loss of cartilage, consistent with severe degenerative joint disease.HEENTThe patient is normocephalic, atraumatic. Pupils are equal and reactive to light. Extraocular motions are intact x3. Oral mucosa is pink and moist. Uvula is midline. The neck is soft and supple with a full range of motion. No masses were palpated on examination today, and no bruits were auscultatedon examination. Cranial nerves II through XII are grossly intact. CardiovascularNormal rate and rhythm auscultated on examination today. No rubs, murmurs or gallops are noted.PulmonaryNormal vesicular breath sounds were auscultated in all nieves. No rales, wheezes or rhonchi were noted. On examination today.Left Upper ExtremityExamination of the left upper extremity shows full range of motion 5-5 strength of the left shoulder, elbow, wrist, thumb and phalangeal joints. Good radial pulse. Capillary refill is less than 2 seconds. The patient is neurovascularly intact distally. Deep tendon reflexes are intact. No lymphadenopathy is noted on examinationLeft Lower Extremity Examination of the left lower extremity shows a full range of motion 5-5 strength of the left hip, ankle, subtalar, and phalangeal joints. Good pedal pulses. Capillary refills less than 2 seconds. The patient is neurologically intact distally. Deep tendon reflexes are intact. No lymphadenopathy is noted on examination.Right Lower Extremity Right knee examination reveals maximum flexion of approximately 112 degrees. Patient unable to achieve full extension with a 12-degree flexion contracture present, which is consistent with arthritic changes. Knee cap demonstrates some mobility on examination. Examination of the right lower extremity shows a full range of motion, 5 out of 5 strength of the left hip, knee, ankle, subtalar, and phalangeal joints. Good pedal pulses. Capillary refills less than 2 seconds. The patient is neurologically intact distally. Deep tendon reflexes are intact. No lymph adenopathy is noted.Range of motion of the knee is 0-120 degrees. There is point tenderness to touch over the medial joint line. Patient has pseudo-laxity with a valgus stress test. Negative anteriordrawer, posterior drawer, Edison. Right Upper ExtremityExamination of the right upper extremity shows a full range of motion and 5 out of 5 strength of the right shoulder, elbow, wrist, thumb and phalangeal joint. Good pedal pulses. Capillary refills less than 2 seconds. The patient is neurologically intact distally. Deep tendon reflexes are intact. No lymphadenopathy is noted on examination
--- OUTSIDE RECORDS SUMMARY | 2024-12-30 13:00 | XMS_ITS | Encounter Summary ---
Author Organization [facility] Address [address] [place] [address] Care Team Providers Care Equipment Mechanic Name Role Phone Vipul Cruz MD Primary Care Provider [phone] Reason for Referral * Imaging (Routine) - AuthorizedSpecialtyDiagnoses / ProceduresReferred By ContactReferred To ContactRadiology Diagnoses Type 2 diabetes mellitus without complication, without long-term current use of insulin (HCC) Abnormal EKG Dyspnea on exertion Procedures Stress test with myocardial perfusion Vipul Cruz MD [address] [address] Phone: tel: fax: [facility]io[facility] [address] [facility], [address] Referral IDStatusReasonStart DateExpiration DateVisits RequestedVisits [id number]/20/20254/ * Imaging (Routine) - AuthorizedSpecialtyDiagnoses / ProceduresReferred By ContactReferred To ContactRadiology Diagnoses Aortic systolic murmur on examination Abnormal EKG Procedures Echocardiogram 2D complete Vipul rCuz MD 112 [facility] [address] [place] [address] Phone: tel: fax: [facility] [address] [place] [address] Phone: tel: fax: Referral IDStatusReasonStart DateExpiration DateVisits RequestedVisits [id number] Perform Procedure / Reason for Visit * ReasonCommentssurgical clearanceNeeds clearance for right TKA 01/15/[address] Anthony Salinas in [facility] completed Encounter Details DateTypeDepartmentCare Team (Latest Contact Info)Nrscfpmvmwl66/20/2025 2:00 PM EDTOffice Visit [facility] [address] [facility] [address] [place] [address] Vipul Cruz MD 112 [facility] [address] [place], [place] [id number] Acute sinusitis, recurrence not specified, unspecified location (Primary Dx); Primary osteoarthritis of right knee; Aortic systolic murmur on examination; Type 2 diabetes mellitus without complication, without long-term current use of insulin (HCC); Abnormal EKG; Dyspnea on exertion Social History Tobacco UseTypesPacks/DayYears UsedDateSmoking Tobacco: NeverPassive Smoke Exposure: NeverSmokeless Tobacco: NeverAlcohol UseStandard Drinks/WeekComments Never0 (1 standard drink = 0.6 oz pure alcohol)PHQ-2AnswerDate RecordedPatient Health Questionnaire-2 [id number] and Gender InformationValueDate RecordedSex Assigned at BirthNot on fileLegal SexFemale 05/25/2022 7:39 PM EDTGender IdentityNot on fileSexual OrientationNot on file documented as of this encounter Last Filed Vital Signs Vital SignReadingTime TakenCommentsBlood Bxlzolph600/7412/30/2024 1:39 PM EDT Pmwfv245612/30/2024 1:39 PM EDTTemperature--Respiratory Rate--Oxygen Mhxsrinobe64% 12/30/2024 1:39 PM EDTInhaled Oxygen Concentration--Ejewau32.8 kg (176 lb) 12/30/2024 1:39 PM VPZYpjoeu462.7 cm (5' 8 )12/30/2024 1:39 PM EDTBody Mass Index26.7610/ 1:39 PM EDTdocumented in this encounter Progress Notes * Vipul Cruz MD - 12/30/2024 2:00 PM EDT Images from the original note were not included. HPI surgical clearance Additional comments: Needs clearance for right TKA 01/15/[address] Anthony Salinas in [facility] completed Last edited by Janet Jack LPN on 12/30/2024 1:44 PM. Subjective Patient ID: Madison Quach is a 89 y.o. female who presents for surgical clearance (Needs clearance for right TKA 01/15/[address] Anthony Salinas in [place]//[facility] completed). Pt has had right knee pain for years She has had injections in right knee-- no help per pt Pt has pain, swelling and feeling like it will give out No current outpatient medications on file prior to visit. No current facility-administered medications on file prior to visit. I have reviewed and reconciled the history and medication list with the patient today. No Known Allergies Social History Tobacco Use Smoking status: Never Passive exposure: Never Smokeless tobacco: Never Vaping Use Vaping status: Never Used Substance Use Topics Alcohol use: Never Drug use: Never Family History Problem Relation Name Age of Onset Hypertension Father Heart disease Father Past Medical History: Diagnosis Date Asymmetric SNHL (sensorineural hearing loss) Chronic sinusitis HLD (hyperlipidemia) Impaired fasting glucose OA (osteoarthritis) OM (onychomycosis) Pneumonia Right-sided tinnitus Past Surgical History: Procedure Laterality Date HC OR CATARACT REMOVAL Bilateral 2008 HYSTERECTOMY 1971 [place] KNEE SCOPE,DIAGNOSTIC 08/2017 Dr. Lundberg Visit Vitals BP 120/74 Pulse 84 Ht 5' 8 Wt 176 lb SpO2 97% BMI 26.76 kg/m?? Smoking Status Never BSA 1.96 m?? Review of Systems Objective Physical Exam Constitutional: General: She is not in acute distress. Appearance: Normal appearance. She is well-developed. HENT: Head: Normocephalic and atraumatic. Right Ear: Tympanic membrane and ear canal normal. Left Ear: Tympanic membrane and ear canal normal. Nose: Congestion present. Mouth/Throat: Mouth: Mucous membranes are moist. Pharynx: Posterior oropharyngeal erythema present. Eyes: General: No scleral icterus. Conjunctiva/sclera: Conjunctivae normal. Cardiovascular: Rate and Rhythm: Normal rate and regular rhythm. Heart sounds: Murmur heard. Systolic murmur is present with a grade of 3/6. Pulmonary: Effort: Pulmonary effort is normal. No respiratory distress. Breath sounds: Normal breath sounds. No wheezing, rhonchi or rales. Lymphadenopathy: Cervical: No cervical adenopathy. Skin: General: Skin is warm and dry. Neurological: General: No focal deficit present. Mental Status: She is alert and oriented to person, place, and time. Psychiatric: Mood and Affect: Mood normal. Behavior: Behavior normal. Office Visit on 12/30/2024 Component Date Value Ref Range Status Hemoglobin A1C 12/30/2024 8.0 Final Assessment/Plan Diagnoses and all orders for this visit: Acute sinusitis, recurrence not specified, unspecified location - amoxicillin-clavulanate (Augmentin) 875-125 MG tablet; Take 1 tablet (875 mg) by mouth in the morning and 1 tablet (875 mg) before bedtime. Do all this for 10 days. Primary osteoarthritis of right knee - A partial knee replacement was planned in [place], I cannot medically clear her until A1C improves and she has had a cardiac workup as outlined. Aortic systolic murmur on examination - Echocardiogram 2D complete; Future - By exam I suspect a degree of Aortic stenosis. Type 2 diabetes mellitus without complication, without long-term current use of insulin ([facility]) - Stress test with myocardial perfusion; Future - glimepiride (Amaryl) 1 MG tablet; Take 1 tablet (1 mg) by mouth in the morning. Take before meals. Abnormal EKG - Echocardiogram 2D complete; Future - Stress test with myocardial perfusion; Future Dyspnea on exertion - Stress test with myocardial perfusion; Future Other orders - Follow Up In Family Medicine; Future Follow up with Dr. Vipul Cruz in 3 weeks (on 01/20/2025). documented in this encounter Plan of Treatment DateTypeDepartmentCare Team (Latest Contact Info)Bxdjijqcbvt21/10/2025 9:15 AM ESTOffice Visit [facility] [address] [place] [address] Vipul Cruz MD [address] [facility] [address] [place] [address] NameTypePriorityAssociated DiagnosesOrder ScheduleEchocardiogram 2D complete EchocardiographyRoutine Aortic systolic murmur on examination Abnormal EKG Expected: 12/30/2024 (Approximate), Expires: 12/30/2026Stress test with myocardial perfusionCardiac Nuclear MedicineRoutine Type 2 diabetes mellitus without complication, without long-term current use of insulin (HCC) Abnormal EKG Dyspnea on exertion Expected: 12/30/2024 (Approximate), Expires: 12/30/2026documented as of this encounter Procedures Procedure NamePriorityDate/TimeAssociated DiagnosisCommentsPOCT GLYCATED HEMOGLOBIN, LUPJUHptjzoe65/20/2025 2:47 PM EDT Type 2 diabetes mellitus without complication, without long-term current use of insulin (HCC) documented in this encounter Results * POCT Glycated hemoglobin, total (12/30/2024 2:47 PM EDT)ComponentValueRef RangeTest MethodAnalysis TimePerformed AtPathologist SignatureHemoglobin A1C 8.0Specimen (Source)Anatomical Location / LateralityCollection Method / Volume Collection TimeReceived MhtxMjxja05/20/2025 2:47 PM EDT Narrative Authorizing ProviderResult TypeResult StatusDanipaty Cruz MDPOINT OF CARE TEST ENTER/EDIT ORDERABLESFinal Result documented in this encounter Visit Diagnoses Diagnosis Acute sinusitis, recurrence not specified, unspecified location- Primary Primary osteoarthritis of right knee Aortic systolic murmur on examination Type 2 diabetes mellitus without complication, without long-term current use of insulin (HCC) Abnormal EKG Nonspecific abnormal electrocardiogram (ECG) (EKG) Dyspnea on exertion Other dyspnea and respiratory abnormality documented in this encounter Care Teams Team MemberRelationshipSpecialtyStart DateEnd Date Vipul Cruz MD [address] [facility] [address] [place] [address] PCP - GeneralInternal Medicine07/21/22documented as of this encounter
--- OUTSIDE RECORDS SUMMARY | 2025-01-13 07:17 | XMS_ITS | Encounter Summary ---
Author Organization [facility] Address [address] [place] [address] Care Team Providers Care Net Applications Developer Name Role Phone Vipul Cruz MD Primary Care Provider [phone] Reason for Visit * ReasonOnset DateCommentsupcoming slpdkbh7701/07/2025 Encounter Details DateTypeDepartmentCare Team (Latest Contact Info)Njqhtwebewk55/28/2025Telephone [facility] [place] [facility] [address] [place] [phone] Vipul Cruz MD [address] [place] [address] upcoming surgery Social History Tobacco UseTypesPacks/DayYears UsedDateSmoking Tobacco: NeverPassive Smoke Exposure: NeverSmokeless Tobacco: NeverAlcohol UseStandard Drinks/WeekComments Never0 (1 standard drink = 0.6 oz pure alcohol)PHQ-2AnswerDate RecordedPatient Health Questionnaire-2 Olofx495CommentsUnknownSex and Gender InformationValueDate RecordedSex Assigned at BirthNot on fileLegal SexFemale 05/25/2022 7:39 PM EDTGender IdentityNot on fileSexual OrientationNot on file documented as of this encounter Miscellaneous Notes * Telephone Encounter - Janet Jack LPN - 01/10/2025 11:28 AM EDT Noted will recheck at follow up * Telephone Encounter - LEONARDO CANAS - 01/07/2025 4:14 PM EDT [facility] and since the patient's A1c is 8 or above they will not do surgery on 01/15/25. Patient notified. She has an appointment on 01/20 to check her A1c and if it's below 8.0 please call [facility] @ [phone] documented in this encounter Plan of Treatment DateTypeDepartmentCare Team (Latest Contact Info)Lavambztpvn74/10/2025 9:15 AM ESTOffice Visit [facility] [place] [facility] [address] [facility] [address] [place] [address] Vipul Cruz MD [address] [facility] 110 [place] [address] documented as of this encounter Visit Diagnoses Not on filedocumented in this encounter Care Teams Team MemberRelationshipSpecialtyStart DateEnd Date Vipul Cruz MD [address] [facility] [address] [place] [address] PCP - GeneralInternal Medicine07/21/22documented as of this encounter
--- OUTSIDE RECORDS SUMMARY | 2025-01-13 07:17 | XMS_ITS | Patient Health Record ---
Author Organization [facility] Address [address] [place] [address] Care Team Providers Care Hardener Helper Name Role Phone Nicola Salinas Unavailable [phone] Bao Iqbal Unavailable [phone] Allergies No Known Allergies Results Component Value Reference Range Notes Surgery Scheduling (Not yet reviewed by provider) Interpretation: Performing Lab: Notes/Report: Social Sec number: [id number] Primary Insurance Company:Anthem MedicareSurgeon/Assist:Brad / Bao Assist Surgery Location:[facility] Date & Time:01/15/25, 12:30 pmHosp arrival time day of:9:30am (PER JAM)Surgery End Time:2hr 00minProcedure:Right Jiffy TKRSpecial Equipment:Routine - bitFlyer-Arm:NoDiagnosis:Right Knee OAAdmission Type: 23hr ObsvAnesthesia Type/CPNB:Spinal vs GeneralBedSupineLatex AllergyNoLab Location:[facility] Date/TYes, Please call patient Plate Inspector:Aby [id number] Physician:Dr. Jason Cruz ([facility])History & Physical Appointment Date/:DonePT Appointment Date/Time:To Begin Nov 7 or 10Had or have MRSA/Direct contact w MRSA pt/HCWNo Reason For Referral Reason CANCELLED - APPROVED - Right Total Knee Replacement at [facility] 01/15/25, 23hr Obsv Diagnosis 1 Primary osteoarthrit is of right knee (M17.11) Referral Organization [facility] Referring Provider First Name Nicola Referring Provider Last Name Brad Referring Provider Speciality Orthopedic Surgery Referred Organization [facility] Referred Provider [place] [facility] Referred Address [address],[id number], Procedure 1 Arthroplasty Knee To allen Med/Lat Compartments ([address]) General Notes Stephanie Chowdary 01:59:08 PM > AUTH WAS APPROVED THROUGH [facility] APPROVED DATES ARE FROM 01/15/2025 - 04/14/2025 AUTH# [id number], AUTH IN CHART, Porsche Roque 12/25/2024 09:57:10 [...] alcohol in the p ast year? 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 This is on file at [facility]. Medical clearance is pending The above [...] pre-surgical function levels. 5. However, given Madison [place]'s functional limitations and pain level, this represents [...] EVAL AND TREAT 11/04/2024 JAM-KNEE, RIGHT 3V [id number] 11/04/2024 Pre-Op Testing Orders 12/03/2024 Next Appt Details Provider Name:Bao Iqbal, 01/14/2025 07:00:00 AM, [address] [place] [address], [phone], Provider Name:Nicola Roland , 01/30/2025 10:40:00 AM, [address] [place] [address], [phone], Insurance Providers Payer Name Payer Address Payer Phone Subscriber Number Group Number Insured Name Patient Relationship to Insured Coverage Start Date Coverage End Date Medicare [place] [employer] [address] [place] [phone] [id number] [facility] [place] VU Self - patient is the insured MedicarePO [address] [address] [place] [id number], ELSIESelf - patient is the [id number] 2024 Medical (General) History Surgical History Surgery Date(Month/Year) Hysterectomy
--- OUTSIDE RECORDS SUMMARY | 2025-01-13 07:17 | XMS_ITS | Encounter Summary ---
Author Organization [facility] Address [address] [place] [address] Care Team Providers Care Seasonal Retail Merchandiser Name Role Phone Vipul Cruz MD Primary Care Provider [phone] Encounter Details DateTypeDepartmentCare Team (Latest Contact Info)Rpdivkofazk08/22/2025bstract [facility] [place] [facility] [address] [facility] [address] [place] [phone] Vipul Cruz MD [address] [place], [place] [address] Social History Tobacco UseTypesPacks/DayYears UsedDateSmoking Tobacco: NeverPassive Smoke Exposure: NeverSmokeless Tobacco: NeverAlcohol UseStandard Drinks/WeekComments Never0 (1 standard drink = 0.6 oz pure alcohol)PHQ-2AnswerDate RecordedPatient Health Questionnaire-2 Pswkv409CommentsUnknownSex and Gender InformationValueDate RecordedSex Assigned at BirthNot on fileLegal SexFemale 05/25/2022 7:39 PM EDTGender IdentityNot on fileSexual OrientationNot on file documented as of this encounter Plan of Treatment DateTypeDepartmentCare Team (Latest Contact Info)Dqtoyalbpog75/10/2025 9:15 AM ESTOffice Visit [facility] [place] [facility] [address] [place] [address] Vipul Cruz MD [address] [place], [place] [phone] documented as of this encounter Visit Diagnoses Not on filedocumented in this encounter Care Teams Team MemberRelationshipSpecialtyStart DateEnd Date Vipul Cruz MD [address] [address] PCP - GeneralInternal Medicine07/21/22documented as of this encounter
--- OUTSIDE RECORDS SUMMARY | 2025-01-13 07:17 | XMS_ITS | Encounter Summary ---
Author Organization [facility] Address [address] [place] [address] Care Team Providers Care Reconciliation Machine Operator Name Role Phone Vipul Cruz MD Primary Care Provider [phone] Encounter Details DateTypeDepartmentCare Team (Latest Contact Info)Puxsayfsmch75/20/2025amboo flowsheet [facility] [place] [facility] [address] [place] [phone] Vipul Cruz MD [address] [place], [place] [phone] Social History Tobacco UseTypesPacks/DayYears UsedDateSmoking Tobacco: NeverPassive Smoke Exposure: NeverSmokeless Tobacco: NeverAlcohol UseStandard Drinks/WeekComments Never0 (1 standard drink = 0.6 oz pure alcohol)PHQ-2AnswerDate RecordedPatient Health Questionnaire-2 Adgvb768CommentsUnknownSex and Gender InformationValueDate RecordedSex Assigned at BirthNot on fileLegal SexFemale 05/25/2022 7:39 PM EDTGender IdentityNot on fileSexual OrientationNot on file documented as of this encounter Plan of Treatment DateTypeDepartmentCare Team (Latest Contact Info)Fxhhaelimqh04/10/2025 9:15 AM ESTOffice Visit [facility] [place] [facility] [address] [place] [phone] Vipul Cruz MD [address] [place], [place] [address] documented as of this encounter Visit Diagnoses Not on filedocumented in this encounter Care Teams Team MemberRelationshipSpecialtyStart DateEnd Date Vipul Cruz MD [address] [facility] 110 [place] [address] PCP - GeneralInternal Medicine07/21/22documented as of this encounter
--- OUTSIDE RECORDS SUMMARY | 2025-01-13 07:17 | XMS_ITS | Clinical Summary ---
Author Organization [facility] Address [address], [address] [place] [address] Care Team Providers Care Food Mobile Driver Name Role Phone Vipul Cruz MD Primary Care Provider [phone] Allergies No known active allergies Medications No known medications Active Problems No known active problems Social History Tobacco UseTypesPacks/DayYears UsedDateSmoking Tobacco: NeverSmokeless Tobacco: NeverCommentsUnknownSex and Gender InformationValueDate RecordedSex Assigned at BirthNot on fileLegal DtaFaabbm60/10/2013 4:17 PM ESTGender Identity Not on fileSexual OrientationNot on file Last Filed Vital Signs Vital SignReadingTime TakenCommentsBlood Qwwqklwq672/7603/03/2020 1:44 PM EST Jkcol253003/03/2020 1:44 PM AIKOqjjtphsiec87.1 ??C (97 ??F)03/03/2020 1:44 PM EST Respiratory Itiq405503/03/2020 1:44 PM ESTOxygen Odrhwxjkvb89%03/03/2020 1:44 PM ESTInhaled Oxygen Concentration--Oizjyh88.3 kg (181 lb 6.4 oz)03/03/2020 1:44 PM QKQDjvefq796.7 cm (5' 8 )03/03/2020 1:44 PM ESTBody Mass Index27.5803/03/2020 1:44 PM EST Plan of Treatment Not on file Insurance Care Teams Team MemberRelationshipSpecialtyStart DateEnd Date Vipul Cruz MD 112 [facility] 110 [place] [address] PCP - GeneralInternal Aktkhjwr69/18/20
--- OUTSIDE RECORDS SUMMARY | 2025-01-13 07:17 | XMS_ITS | Clinical Summary ---
Author Organization [facility] Address [address] [place] [address] Care Team Providers Care Material Control Manager Name Role Phone Vipul Cruz MD Primary Care Provider [phone] Allergies No known active allergies Medications MedicationSigDispense [...] Problems ProblemNoted DateDiagnosed DateAortic systolic murmur on vjmuynocted04/30/2024 Asymmetric SNHL (sensorineural hearing loss)01/04/2024ochlear hydrops of right ear01/04/2024Estrogen rvupchvzel90/24/7531Kvogrjzeeujzuf32/24/2024rimary osteoarthritis of left knee01/04/2024rimary osteoarthritis of right knee 01/04/2024ight-sided jlkzdguf57/24/2024Type 2 diabetes mellitus without complication, without long-term current use of nixadde1807/10/2023 Resolved Problems ProblemNoted DateDiagnosed DateResolved DateImpaired fasting uzaztli5801/04/2024 01/10/2024 Encounters DateTypeDepartmentCare NpmfCimdsutvdtt30/31/2025linisync Result Encounter [facility] External Department Unsolicited Vipul Cruz MD 01/07/2025Telephone [facility] [address] [place] [address] Vipul Cruz MD upcoming czbukjc8201/01/2025bstract [facility] [address] [place] [address] Vipul Cruz MD 12/30/2024 2:00 PM EDTOffice Visit [facility] [address] [place] [address] Vipul Cruz MD Acute sinusitis, recurrence not specified, unspecified location (Primary Dx); Primary osteoarthritis of right knee; Aortic systolic murmur on examination; Type 2 diabetes mellitus without complication, without long-term current use of insulin (HCC); Abnormal EKG; Dyspnea on fedblzjq23/20/2025amboo flowsheet [facility] [address] [place] [address] Vipul Cruz MD 12/30/20240238Xevazr18/15/2025bstract [facility] [address] [place] [address] Vipul Cruz MD 12/23/2024linisync Result Encounter [facility] External Department Unsolicited Provider, Generic External Data 12/23/2024linisync Result Encounter [facility] External Department Unsolicited Provider, Generic External Data 12/12/2024 8:00 AM EDTTreatment [facility] [address] [place] [address] Karan Garner PTA Unilateral primary osteoarthritis, right knee (Primary Dx)12/12/2024amboo flowsheet [facility] [address] [place] [address] Karan Garner PTA 12/12/20243616Jdkqzn29/29/2025 8:00 AM EDTTreatment [facility] [address] [place] [address] Karan Garner, AIR CARGO SPECIALIST Unilateral primary osteoarthritis, right knee (Primary Dx)12/09/2024amb flowsheet [facility] [address] [place] [address] Karan Garner, AIR CARGO SPECIALIST 12/09/20245373Etyguq99/25/2025 8:00 AM EDTTreatment [facility] [address] [place] [address] Karan Garner, AIR CARGO SPECIALIST Unilateral primary osteoarthritis, right knee (Primary Dx)12/05/2024 flowsheet [facility] [address] [place] [address] Karan Garner, AIR CARGO SPECIALIST 12/05/20243418Kmwlby82/22/2025 12:30 PM EDTTreatment [facility] [address] [place] [address] CiriloVicky pantojaCheli, AIR CARGO SPECIALIST Unilateral primary osteoarthritis, right knee (Primary Dx)12/02/2024Travel 11/28/2024 8:00 AM EDTTreatment [facility] [address] [place] [address] Laly Davis, PT Unilateral primary osteoarthritis, right knee (Primary Dx)11/28/2024amb flowsheet [facility] [address] [place] [address] Laly Davis, PT 11/28/20248134Jylzjk09/15/2025 3:00 PM EDTTreatment [facility] [address] [place] [address] CiriloVicky pantojaCheli, AIR CARGO SPECIALIST Unilateral primary osteoarthritis, right knee (Primary Dx)09/15/2025Bamboo flowsheet [facility] [address] [place] [address] Teja Cheli, AIR CARGO SPECIALIST 11/25/20249751Kyizwz03/11/2025 11:00 AM EDTOffice Visit [facility] [address] [place] [address] Liz Dias, LEAD SOLUTIONS ARCHITECT Acute recurrent frontal sinusitis (Primary Dx); Acute cough11/21/2024 8:00 AM EDTTreatment [facility] [address] [place] [address] Karan Garner, AIR CARGO SPECIALIST Unilateral primary osteoarthritis, right knee (Primary Dx)11/21/2024Telephone [facility] [address] [place] [address] Vipul Cruz MD 11/21/20246588Sibwjq90/08/2025 8:00 AM EDTTreatment [facility] [address] [place] [address] Karan Garner, AIR CARGO SPECIALIST Unilateral primary osteoarthritis, right knee (Primary Dx)5Bamboo flowsheet [facility] [address] [place] [address] Karan Garner, AIR CARGO SPECIALIST 11/18/20241143Bbtlno68/04/2025 9:30 AM EDTEvaluation [facility] [address] [place] [address] Laly Davis, PT Unilateral primary osteoarthritis, right knee (Primary Dx)11/14/2024Plan of Care Documentation [facility] [address] [place] [address] 5Bamboo flowsheet [facility] [address] [place] [address] Laly Davis, PT 11/14/2024Travelfrom Last 3 Months Immunizations ImmunizationAdministration DatesNext DuePneumococcal Polysaccharide PPSV23 01/15/2019 Family History Medical HistoryRelationNameCommentsHeart diseaseFatherHypertensionFatherRelation NameStatusCommentsFatherDeceasedMotherDeceased Social History Tobacco UseTypesPacks/DayYears UsedDateSmoking Tobacco: NeverPassive Smoke Exposure: NeverSmokeless Tobacco: Never Tobacco Cessation:Counseling Given: Yes Alcohol UseStandard Drinks/WeekCommentsNever0 (1 standard drink = 0.6 oz pure alcohol)PHQ-2AnswerDate RecordedPatient Health Questionnaire-2 Ifrqo248 CommentsUnknownSex and Gender InformationValueDate RecordedSex Assigned at BirthNot on fileLegal BfjJmrqno40/15/2023 7:39 PM EDTGender IdentityNot on fileSexual OrientationNot on file Last Filed Vital Signs Vital SignReadingTime TakenCommentsBlood Itkbmmws930/7410 1:39 PM EDT Ubivn307712/30/2024 1:39 PM EDTTemperature--Respiratory Chdi526711/21/2024 10:47 AM EDTOxygen Sypssgmnvm05%12/30/2024 1:39 PM EDTInhaled Oxygen Concentration-- Lhntag67.8 kg (176 lb)12/30/2024 1:39 PM KYLCyprwu364.7 cm (5' 8 )12/30/2024 1:39 PM EDTBody Mass Index26.7612/30/2024 1:39 PM EDT Plan of Treatment DateTypeDepartmentCare Team (Latest Contact Info)Fvchsdduiky26/10/2025 9:15 AM ESTOffice Visit [facility] [address] [facility] [address] [place] [address] Vipul Cruz MD [address] [facility] [address] [place] [address] Health MaintenanceDue DateLast DoneCommentsDTaP/Tdap/Td Vaccines (1 - Tdap) 3Diabetes: Retinopathy Wligzsvkk31/24/1946Diabetes: Urine Protein Nmzcgvvew97/24/1955Pneumococcal Vaccine: 65+ Years (2 of 2 - PCV)01/16/2020 01/15/2019COVID-19 Vaccine (1 - 2023- season)2024Influenza Vaccine (#1) 2024Diabetes: Hemoglobin A1C610/, 07/18/2024, 01/10/2024, Additional history existsMedicare Annual Wellness (AWV), 07/10/2023, 10/25/2021HIB VaccinesAged OutNo longer eligible based on patient's age to complete this topicHPV VaccinesAged OutNo longer eligible based on patient's age to complete this topicHepatitis A VaccinesAged OutNo longer eligible based on patient's age to complete this topicHepatitis B VaccinesAged OutNo longer eligible based on patient's age to complete this topicIPV Vaccines Aged OutNo longer eligible based on patient's age to complete this topic Meningococcal B VaccineAged OutNo longer eligible based on patient's age to complete this topicMeningococcal VaccineAged OutNo longer eligible based on patient's age to complete this topicRotavirus VaccinesAged OutNo longer eligible based on patient's age to complete this topic Procedures Procedure NamePriorityDate/TimeAssociated DiagnosisCommentsCA ECHO DOPPLER CAVCPUHB67/31/2025 4:10 PM EDT POCT GLYCATED HEMOGLOBIN, JFQUAVpuyohe03/20/2025 2:47 PM EDT Type 2 diabetes mellitus without complication, without long-term current use of insulin (HCC) ECG 12-LEAD12/23/2024 9:19 AM EDT MRSA SCREENING CPLTCBSRfhehwn90/13/2025 9:11 AM EDT ALL BASIC METABOLIC CPXFBXktxdzq49/13/2025 9:10 AM EDT ALL CBC WITH AUTO FGTTNlsehan37/13/2025 9:10 AM EDT from Last 3 Months Results * CA ECHO DOPPLER COMPLETE (01/10/2025 4:10 PM EDT)Anatomical RegionLaterality ModalityOtherSpecimen (Source)Anatomical Location / LateralityCollection Method / VolumeCollection TimeReceived Time01/10/2025 4:10 PM EDT Narrative 01/10/2025 4:12 PM EDT [facility] ?[address] ? [place], [facility] ? Cardiology Report ? Signed ? Patient: MIRELLA,MADISON R ?MR#: [id number] ?? : 1935 ?Acct:[id number] ?? Age/Sex: 89 / F ?ADM Date: 01/10/25 ?? Loc: CARD ? Attending Dr: VIPUL CRUZ ? Ordering Physician: VIPUL CRUZ ?? Date of Service: 01/10/25 ?? Procedure(s): CA echo doppler complete ?? Accession Number(s): [id number] ? cc: VIPUL CRUZ ? Patient Name: ? MADISON VU ? MR#: [id number] ? : 1935 ? Exam Date: 01/10/2025 ?? Ordering Doctor: DR VIPUL CRUZ M.D. ? ECHOCARDIOGRAM REPORT ? PROCEDURE: ? CA ECHO DOPPLER COMPLETE ? INDICATIONS: ? Abnormal ECG, murmur, diabetes ? COMPARISON: ? None. ? DESCRIPTION: ? COMPLETE ECHOCARDIOGRAM Real-time transthoracic ?? echocardiography with 2D, M-mode, spectral and color flow Doppler performed. ? QUALITY: ? Technical quality was good. ? LEFT VENTRICLE: ? Normal chamber size. Thickened septal wall. ? LV EF: ? Global left ventricular systolic function is normal; visually ?? estimated ejection fraction is 55 to 60%. ??No significant wall motion ?? abnormalities. ?? DIASTOLIC: ? Unable to assess diastolic function. ?? ATRIAL SEPTUM: ? Inadequately seen. ?? LEFT ATRIUM: ? Normal chamber size. ?? RIGHT ATRIUM: ? Normal chamber size. ?? RIGHT VENTRICLE: ? Mildly dilated. ??Normal systolic function. ?? TRICUSPID VALVE: ? Normal mobility and thickness. No stenosis with mild to ?? moderate regurgitation. Doppler studies reveal mildly (35-45) elevated right ?? sided pressures. RVSP 36 mmHg ? MITRAL VALVE: ? Mildly thickened with normal mobility. Severe mitral annular ?? calcification. Trivial mitral regurgitation. ? AORTIC VALVE: ? Normal trileaflet appearance. Moderately calcified aortic ?? valve. ??Severely diminished mobility. ??Doppler velocity suggests moderate ?? aortic valve stenosis. DVI 0.27, ALEC 0.8 cm2, mean 30 mmHg, Vmax 3.58 m/sec. ?? Mild aortic regurgitation. ? AORTIC ROOT: ? Normal diameter and appearance. Ascending aorta is normal in ?? size. ? PULMONIC VALVE: ? Normal thickness and mobility. No stenosis. No ?? regurgitation. ? PERICARDIUM: ? No evidence of pericardial effusion. ? IVC: ? Not well visualized. ? CONCLUSION: ? 1. Global left ventricular systolic function is normal; visually estimated ?? ejection fraction is 55 to 60% ?? 2. The right ventricle is mildly dilated with normal systolic function ?? 3. The left atrium is normal in size ?? 4. Mild to moderate tricuspid regurgitation ?? 5. Mildly elevated right ventricular systolic pressure; RVSP 36 mmHg ?? 6. Moderate aortic valve stenosis; mild aortic valve regurgitation ? Adult Echocardiography Procedure Report ?? Left Ventricle ?? LVEDD (3.7 - 5.6 cm): ? 4.06 cm ?? LVESD (2.2 - 4.0 cm): ? 3.04 cm ?? LVIVS thickness (0.6 - 1.2 cm): ? 1.56 cm ?? LVPW thickness (0.5 - 1.0 cm): ? 1.01 cm ?? LVOT Max Gradient: ? 3.74 mm[Hg] ?? LVOT Area (cm2): ? 0.97 m/s ?? Peak Velocity (LVOT): ? 0.97 m/s ?? Mean Velocity (LVOT): ? 0.55 m/s ?? LVOT Diameter ? 2.08 cm ?? Left Ventricular Ejection Fraction: ? 63.87 % ?? Left Atrium ?? LA Volume Index (2D A2C): ? 32.84 ml/m2 ?? Left Atrium Systolic Dimension: ? 2.62 cm ?? Mitral Valve ?? MV E to A Ratio: ? 0.60 ?? Mitral Valve A-Wave Peak Velocity: ? 1.44 m/s ?? Mitral Valve E-Wave Peak Velocity: ? 0.87 m/s ?? Right Ventricle ?? Aorta ?? AO Root Diam: ? 3.19 cm ?? Ascending Ao Diam: ? 2.85 cm ?? Aortic Valve ?? AoV Area (Peak Deshawn): ? 0.92 cm2, 1.05 cm2 ?? AoV Area (VTI): ? 0.84 cm2, 0.98 cm2 ?? Deceleration Charlotte: ? 2.53 m/s2, 1.40 m/s2 ?? Pressure Half-Time: ? 422.33 ms, 751.27 ms ?? Peak Velocity(Antegrade Flow): ? 3.12 m/s, 3.58 m/s ?? Peak Gradient(Antegrade Flow): ? 39.02 mm[Hg], 51.16 mm[Hg] ?? Mean Velocity(Antegrade Flow): ? 2.36 m/s, 2.52 m/s ?? Mean Gradient(Antegrade Flow): ? 24.46 mm[Hg], 30.27 mm[Hg] ?? Velocity Time Integral: ? 75.57 cm, 88.31 cm ?? Tricuspid Valve ?? Peak Velocity (Regurgitant Flow): ? 2.47 m/s, 2.46 m/s, 2.88 m/s ?? Pulmonic Valve ?? Mean Gradient: ? 1.46 mm[Hg], 1.40 mm[Hg] ?? Mean Velocity: ? 0.58 m/s, 0.56 m/s ?? Peak Gradient: ? 2.63 mm[Hg], 2.54 mm[Hg] ?? Right Atrium ?? Right Atrium Systolic Pressure: ? 56.50 ml, 56.50 ml ? Dictated by: Jessica Siegel M.D. on 01/10/2025 at 16:04 ? Approved by: Jessica Siegel M.D. on 01/10/2025 at 16:10 ? Dictated By: ?Jessica Siegel M.D. ? Signed By: ?01/10/252 ? DD/ ? TD/TT: ? Gas And Oil Servicer: Procedure Note Radiology, Radiologist, MD - 01/10/2025 [place] [address] Cardiology Report Signed Patient: MADISON VU RMR#: [id number] : 1935cct:[id number] Age/Sex: 89 / FADM Date: 01/10/25 Loc: CARD Attending Dr: VIPUL CRUZ Ordering Physician: VIPUL CRUZ Date of Service: 01/10/25 Procedure(s): CA echo doppler complete Accession Number(s): [id number] cc: YNESPADMINIVIPUL Patient Name: MADISON VU MR#: [id number] : 1935 Exam Date: 01/10/2025 Ordering Doctor: DR VIPUL CRUZ M.D. ECHOCARDIOGRAM REPORT PROCEDURE: CA ECHO DOPPLER COMPLETE INDICATIONS: Abnormal ECG, murmur, diabetes COMPARISON: None. DESCRIPTION: COMPLETE ECHOCARDIOGRAM Real-time transthoracic echocardiography with 2D, M-mode, spectral and color flow Dopplerperformed. QUALITY: Technical quality was good. LEFT VENTRICLE: Normal chamber size. Thickened septal wall. LV EF: Global left ventricular systolic function is normal; visually estimated ejection fraction is 55 to 60%. No significant wall motion abnormalities. DIASTOLIC: Unable to assess diastolic function. ATRIAL SEPTUM: Inadequately seen. LEFT ATRIUM: Normal chamber size. RIGHT ATRIUM: Normal chamber size. RIGHT VENTRICLE: Mildly dilated. Normal systolic function. TRICUSPID VALVE: Normal mobility and thickness. No stenosis with mildto moderate regurgitation. Doppler studies reveal mildly (35-45) elevatedright sided pressures. RVSP 36 mmHg MITRAL VALVE: Mildly thickened with normal mobility. Severe mitralannular calcification. Trivial mitral regurgitation. AORTIC VALVE: Normal trileaflet appearance. Moderately calcifiedaortic valve. Severely diminished mobility. Doppler velocity suggests moderate aortic valve stenosis. DVI 0.27, ALEC 0.8 cm2, mean 30 mmHg, Vmax 3.58m/sec. Mild aortic regurgitation. AORTIC ROOT: Normal diameter and appearance. Ascending aorta is normalin size. PULMONIC VALVE: Normal thickness and mobility. No stenosis. No regurgitation. PERICARDIUM: No evidence of pericardial effusion. IVC: Not well visualized. CONCLUSION: 1. Global left ventricular systolic function is normal; visually estimated ejection fraction is 55 to 60% 2. The right ventricle is mildly dilated with normal systolic function 3. The left atrium is normal in size 4. Mild to moderate tricuspid regurgitation 5. Mildly elevated right ventricular systolic pressure; RVSP 36 mmHg 6. Moderate aortic valve stenosis; mild aortic valve regurgitation Adult Echocardiography Procedure Report Left Ventricle LVEDD (3.7 - 5.6 cm): 4.06 cm LVESD (2.2 - 4.0 cm): 3.04 cm LVIVS thickness (0.6 - 1.2 cm): 1.56 cm LVPW thickness (0.5 - 1.0 cm): 1.01 cm LVOT Max Gradient: 3.74 mm[Hg] LVOT Area (cm2): 0.97 m/s Peak Velocity (LVOT): 0.97 m/s Mean Velocity (LVOT): 0.55 m/s LVOT Diameter 2.08 cm Left Ventricular Ejection Fraction: 63.87 % Left Atrium LA Volume Index (2D A2C): 32.84 ml/m2 Left Atrium Systolic Dimension: 2.62 cm Mitral Valve MV E to A Ratio: 0.60 Mitral Valve A-Wave Peak Velocity: 1.44 m/s Mitral Valve E-Wave Peak Velocity: 0.87 m/s Right Ventricle Aorta AO Root Diam: 3.19 cm Ascending Ao Diam: 2.85 cm Aortic Valve AoV Area (Peak Deshawn): 0.92 cm2, 1.05 cm2 AoV Area (VTI): 0.84 cm2, 0.98 cm2 Deceleration Charlotte: 2.53 m/s2, 1.40 m/s2 Pressure Half-Time: 422.33 ms, 751.27 ms Peak Velocity(Antegrade Flow): 3.12 m/s, 3.58 m/s Peak Gradient(Antegrade Flow): 39.02 mm[Hg], 51.16 mm[Hg] Mean Velocity(Antegrade Flow): 2.36 m/s, 2.52 m/s Mean Gradient(Antegrade Flow): 24.46 mm[Hg], 30.27 mm[Hg] Velocity Time Integral: 75.57 cm, 88.31 cm Tricuspid Valve Peak Velocity (Regurgitant Flow): 2.47 m/s, 2.46 m/s, 2.88 m/s Pulmonic Valve Mean Gradient: 1.46 mm[Hg], 1.40 mm[Hg] Mean Velocity: 0.58 m/s, 0.56 m/s Peak Gradient: 2.63 mm[Hg], 2.54 mm[Hg] Right Atrium Right Atrium Systolic Pressure: 56.50 ml, 56.50 ml Dictated by: Jessica Siegel M.D. on 01/10/2025 at 16:04 Approved by: Jessica Siegel M.D. on 01/10/2025 at 16:10 Dictated By: Jessica Siegel M.D. Signed By:01/10/251611 DD/ 1610 TD/TT: [employer]icer: Authorizing ProviderResult TypeResult Lashawn Cruz MDCLINISYNC IMAGING Final Result * POCT Glycated hemoglobin, total (12/30/2024 2:47 PM EDT)ComponentValueRef RangeTest MethodAnalysis TimePerformed AtPathologist SignatureHemoglobin A1C 8.0Specimen (Source)Anatomical Location / LateralityCollection Method / Volume Collection TimeReceived OkziPlhbk16/20/2025 2:47 PM EDT Narrative Authorizing ProviderClaudio TypeResult Lashawn Cruz MDPOINT OF CARE TEST ENTER/EDIT ORDERABLESFinal Result * ECG 12-LEAD (12/23/2024 9:19 AM EDT)Anatomical RegionLateralityModalityOther Specimen (Source)Anatomical Location / LateralityCollection Method / Volume Collection TimeReceived Time12/23/2024 9:19 AM EDT Narrative 12/23/2024 12:58 PM EDT [facility] ?[address] ? [place] [address] ? Electrocardiograph Report ? Signed ? Patient: MIRELLAMADISON Zina ?MR#: [id number] ?? : 1935 ?Acct:[id number] ?? Age/Sex: 89 / F ?ADM Date: 12/23/24 ?? Loc: LAB ? Attending Dr: MINNA REY ? Ordering Physician: MINNA REY ?? Date of Service: 12/23/24 ?? Procedure(s): ECG 12 lead ?? Accession Number(s): [id number] ? cc: ?[facility] ? Test Date: ?2024-12-23 ?? Pat Name: ? MADISON MIRELLA ?Department: ? Room: ? - ?? Gender: ? Female ? Health Professional: ? : ?1935 ? Requested By: [id number] ?? Order Number: [id number] ?Reading MD: ?? SUSAN ??Zack LEE ? Measurements ?? Intervals ?[place] ? Rate: ? 74 ? P: ?56 ?? MI: ? 153 ?QRS: ?-35 ?? QRSD: ? [...] Dictated By: ?SUSAN LEE ? Signed By: ?10/13/25 1258 ?12/23/24 1258 ? DD/ 0919 ? TD/TT: ? [employer]icer: Procedure Note Radiology, Radiologist, - 12/23/2024 [place] [address] Electrocardiograph Report Signed Patient: MADISON VU RMR#: [id number] : 1935cct:[id number] Age/Sex: 89 / FADM Date: 12/23/24 Loc: LAB Attending Dr: MINNA REY Ordering Physician: MINNA REY Date of Service: 12/23/24 Procedure(s): ECG 12 lead Accession Number(s): [id number] cc: [facility] Test Date: 2024-12-23 Pat Name: MADISON VU Department: Room: - Gender: Female Health Professional: : 1935 Requested By: [id number] Order Number: [id number] Kvng MD: SUSAN LEE M.D. Measurements Intervals [place] Rate: 74 P: 56 MI: 153 QRS: -35 QRSD: 88 T: 77 [...] By:12/23/24 1258 12/23/24 1258 DD/ 0919 TD/TT: [employer]icer: Authorizing ProviderResult TypeResult StatusGeneric External Data Provider CLINISYNC IMAGINGFinal Result * MRSA SCREENING CULTURE (12/23/2024 9:11 AM EDT)ComponentValueRef RangeTest MethodAnalysis TimePerformed AtPathologist SignatureMRSASCRN1 ??MRSA Screening Culture VHJFJAOEIPB8FgsdvlfcUMXYZTLJXQZ9Sfwkhrcwu at: [facility] LabcoClara [facility] Medical CenterTBHMRSASCRN1 [address] [place], [place] [id number] Director: Irvin Black PhD, Phone: [phone] (Source)Anatomical Location / LateralityCollection Method / VolumeCollection TimeReceived Time12/23/2024 9:11 AM EDT1 9:14 AM EDT Narrative [facility]IN[facility]NC - 12/25/2024 9:09 AM EDT Authorizing ProviderResult TypeResult StatusGeneric External Data ProviderLAB BLOOD ORDERABLESFinal ResultPerforming OrganizationAddressCity/State/ZIP Code Phone Number [facility] * (ABNORMAL) ALL CBC WITH AUTO DIFF (12/23/2024 9:10 AM EDT)ComponentValueRef RangeTest MethodAnalysis TimePerformed AtPathologist SignatureTBH WBC4.84.0 - 11.0 10 3/uLTBHTBH RBC4.834.20 - 5.40 10 6/uLTBHTBH HGB14.012.0 - 16.0 g/dLTBH TBH HCT43.136.0 - 48.0 %TBHTBH MCV89.281.0 - 99.0 fLTBHTBH MCH29.026.7 - 34.0 pgTBHTBH MCHC32.529.9 - 35.2 g/dLTBHTBH RDW13.411.0 - 15.0 %TBHTBH RYD400176 - 450 10 3/uLTBHTBH MPV10.39.5 - 13.5 [...] TypeResult StatusGeneric External Data Provider CLINISYNCFinal ResultPerforming OrganizationAddressCity/State/ZIP CodePhone Number [facility] * (ABNORMAL) ALL BASIC METABOLIC PANEL (12/23/2024 9:10 AM EDT)ComponentValueRef RangeTest MethodAnalysis TimePerformed AtPathologist CucsctanaLIVFVW493474 - 145 mmol/LTBHPOTASSIUM4.73.5 - 5.1 mmol/YSSUCLMKXBZF62198 - 107 mmol/LTBH CARBON YZJEONL77.021.0 - 32.0 mmol/LTBHANION GAP15.1GMYRKVEEAZ744(H)74 - 106 mg/dLTBHBLOOD UREA VHXVSCNW53.07.0 - 18.0 mg/dLTBHCREATININE0.870.55 - 1.02 mg/dLTBHTBH EGFR-AF FIJIAN>60>=60 mL/min/1.73m 2TBHTBH EGFR-NON AF FIJIAN >60>=60 mL/min/1.73m 2TBHBUN CREATININE RATIO18.5QVIUQTQQLW0.88.5 - 10.1 mg/dL TBHSpecimen (Source)Anatomical Location / LateralityCollection Method / Volume Collection TimeReceived Time12/23/2024 9:10 AM EDT1 9:14 AM EDT Narrative [facility] - 12/23/2024 9:49 AM EDT BILATERAL NARES Authorizing ProviderResult TypeResult StatusGeneric External Data Provider CLINISYNCFinal ResultPerforming OrganizationAddressCity/State/ZIP CodePhone Number CLINISYNC [facility] from Last 3 Months Insurance Care Teams Team MemberRelationshipSpecialtyStart DateEnd Vipul Cruz MD [address] [place] [address] PCP - GeneralInternal Medicine07/21/22
--- OUTSIDE RECORDS SUMMARY | 2025-01-13 07:17 | XMS_ITS | Encounter Summary ---
Author Organization [facility] Address [address] [place] [address] Care Team Providers Care Control Clerk Subassembly Name Role Phone Vipul Cruz MD Primary Care Provider [phone] Encounter Details DateTypeDepartmentCare Team (Latest Contact Info)Vzehlukmygd01/31/2025linisync Result Encounter [facility] Unsolicited Vipul Cruz MD [address] [facility] [address] [place] [id number] Social History Tobacco UseTypesPacks/DayYears UsedDateSmoking Tobacco: NeverPassive Smoke Exposure: NeverSmokeless Tobacco: NeverAlcohol UseStandard Drinks/WeekComments Never0 (1 standard drink = 0.6 oz pure alcohol)PHQ-2AnswerDate RecordedPatient Health Questionnaire-2 [id number] and Gender InformationValueDate RecordedSex Assigned at BirthNot on fileLegal SexFemale 05/25/2022 7:39 PM EDTGender IdentityNot on fileSexual OrientationNot on file documented as of this encounter Plan of Treatment DateTypeDepartmentCare Team (Latest Contact Info)Ondfnlvtfvc75/10/2025 9:15 AM ESTOffice Visit [facility] [address] [facility] [address] [place] [address] Vipul Cruz MD [address] [facility] [address] [place], [place] [id number] documented as of this encounter Procedures Procedure NamePriorityDate/TimeAssociated DiagnosisCommentsCA ECHO DOPPLER FKYTTZVE72/31/2025 4:10 PM EDT documented in this encounter Results * CA ECHO DOPPLER COMPLETE (01/10/2025 4:10 PM EDT)Anatomical RegionLaterality ModalityOtherSpecimen (Source)Anatomical Location / LateralityCollection Method / VolumeCollection TimeReceived Time01/10/2025 4:10 PM EDT Narrative 01/10/2025 4:12 PM EDT [facility] ?[address] ? [place] [address] ? Cardiology Report ? Signed ? Patient: MADISON VU ?MR#: [id number] ?? : 1935 ?Acct:[id number] ?? Age/Sex: 89 / F ?ADM Date: 01/10/25 ?? Loc: CARD ? Attending Dr: VIPUL CRUZ ? Ordering Physician: VIPUL CRUZ ?? Date of Service: 01/10/25 ?? Procedure(s): CA echo doppler complete ?? Accession Number(s): [id number] ? cc: VIPUL CRUZ ? Patient Name: ? MADISON VU ? MR#: [id number] ? : 1935 ? Exam Date: 01/10/2025 [...] ? 0.84 cm2, 0.98 cm2 ?? Deceleration Sauk: ? 2.53 m/s2, 1.40 m/s2 ?? Pressure [...] By: ?Jessica Siegel M.D. ? Signed By: ?01/10/25 1612 ? DD/ 1610 ? TD/TT: ? Cotton Agent: Procedure Note Radiology, Radiologist, MD - 01/10/2025 [place] [address] Cardiology Report Signed Patient: MADISON VU RMR#: [id number] : 1935cct:[id number] Age/Sex: 89 / FADM Date: 01/10/25 Loc: CARD Attending Dr: VIPUL CRUZ Ordering Physician: VIPUL CRUZ Date of Service: 01/10/25 Procedure(s): CA echo doppler complete Accession Number(s): [id number] cc: IVPUL CRUZ Patient Name: MADISON VU MR#: [id number] : 1935 Exam Date: 01/10/2025 Ordering Doctor: [...] Area (VTI): 0.84 cm2, 0.98 cm2 Deceleration Sauk: 2.53 m/s2, 1.40 m/s2 Pressure Half-Time: 422.33 [...] 16:10 Dictated By: Jessica Siegel M.D. Signed By:01/10/25 161 DD/ 1610 TD/TT: Cotton Agent: Authorizing ProviderResult TypeResult StatusDanipaty Cruz MDCLINISYNC IMAGING Final Result documented in this encounter Visit Diagnoses Not on filedocumented in this encounter Care Teams Team MemberRelationshipSpecialtyStart DateEnd Date Vipul Cruz MD [address] [place] [address] PCP - GeneralInternal Medicine07/21/22documented as of this encounter
--- OUTSIDE RECORDS SUMMARY | 2025-01-13 07:18 | XMS_ITS | Encounter Summary ---
Author Organization [facility] Address [address] [place] [address] Care Team Providers Care Mortgage Or Loan Underwriter Name Role Phone Vipul Cruz MD Primary Care Provider [phone] Encounter Details DateTypeDepartmentCare Team (Latest Contact Info)Agxqxfuytlc34/20/2025Travel Social History Tobacco UseTypesPacks/DayYears UsedDateSmoking Tobacco: NeverPassive Smoke Exposure: NeverSmokeless Tobacco: NeverAlcohol UseStandard Drinks/WeekComments Never0 (1 standard drink = 0.6 oz pure alcohol)PHQ-2AnswerDate RecordedPatient Health Questionnaire-2 [id number] and Gender InformationValueDate RecordedSex Assigned at BirthNot on fileLegal SexFemale 05/25/2022 7:39 PM EDTGender IdentityNot on fileSexual OrientationNot on file documented as of this encounter Plan of Treatment DateTypeDepartmentCare Team (Latest Contact Info)Axxrlzbjxqo04/10/2025 9:15 AM ESTOffice Visit [facility] [address] [place] [address] [place] [phone] Vipul Cruz MD [address] [place] [address] [place], [place] [phone] documented as of this encounter Visit Diagnoses Not on filedocumented in this encounter Care Teams Team MemberRelationshipSpecialtyStart DateEnd Date Vipul Cruz MD [address] [place] [address] [place] [address] PCP - GeneralInternal Medicine07/21/22documented as of this encounter
--- NOTE | 2025-01-13 07:40 | NM_ITS ---
Patient Name: RAISA VU MR#: [id number] : 1935 Exam Date: 01/13/2025 Ordering Doctor: DR ALANA QUICK M.D. RADIOLOGY REPORT PROCEDURE: NM GRAHAM PERF SPECT REST STR COMPARISON: None. INDICATIONS: PRE PROCEDURE CARDIOVASCULAR EXAM, ABNORMAL EKG, DYSPNEA TECHNIQUE: Exam Description: Stress/Rest one day protocol gated SPECT Rest Imagin.8 mCi Tc-99m Cardiolite IV on 01-13-2025 Stress Imaging 30.6 mCi Tc-99m Cardiolite IV on 01-13-2025 Exercise Protocol: 0.4 mg Lexiscan given IV Heart Rate (bpm): Rest: 66 Max: 94 PMHR: 71 Blood Pressure: Rest: 150/88 Max: 174/66 Symptoms: Rest and peak stress ECG findings were pending, and the exercise portion of the study was pending per attending physician [facility]. For more details, please see separate cardiac stress test report. FINDINGS: QUALITY OF STUDY: Good PERFUSION DEFECT: LOCATION: Mid to apical lateral wall SIZE: Moderate SEVERITY: Mild TYPE: Reversible WALL MOTION: Normal wall motion LV SIZE: 48 mL. TID / TCD: 0.6 LVEF: Calculated EF 84%. SUMMARY: Myocardial perfusion imaging study is abnormal CONCLUSION: 1. Myocardial perfusion is abnormal 2. There is a reversible, lateral, perfusion defect seen suggestive of ischemia 3. Global left ventricular systolic function is hyperdynamic; ejection fraction is 84% 4. No significant transient ischemic dilatation Dictated by: Jessica Siegel M.D. on 01/15/2025 at 14:26 Approved by: Jessica Siegel M.D. on 01/15/2025 at 14:30
--- NOTE | 2025-01-13 09:50 | PC.NURSE ---
Nursing Note Cardiac Stress Test Reviewed: Medication, allergies and patient history reviewed. Stress Test: [x ] Patient tolerated stress test well. [ ] Patient unable to tolerate walking on treadmill. Switched to Lexiscan stress test. [x ] No chest pain noted per patient [ ] Chest pain that resolved prior to leaving stress lab. [x ] No dyspnea noted. [ ] Dyspnea that resolved prior to leaving stress lab. [x ] Patient left stress lab asymptomatic and hemodynamically stable. [ ] Patient taken to the Emergency Room due to non-resolving symptoms following stress test. [ ] Patient achieved target heart rate. [ ] Patient unable to achieve target heart rate. [ ] Aminophylline administered as reversal agent to Lexiscan (Regadenoson). [ ] Nitro administered. Nursing Comments:Lexiscan test done no issues noted. Pt ambulated to cafeteria for breakfast prior to second set of images.
[2025-01-13] MEDS: REGADENOSON 0.4 MG/5 ML SYRINGE IV (09:52)
--- NOTE | 2025-01-13 14:04 | P.STRESS_ITS ---
Stress Test Stress Test Requesting physician: ALANA QUICK Procedure: This was a Lexiscan stress test with myocardial perfusion imaging performed at the [facility] on 01/13/2025. Intravenous line was secured. The patient was attached to electrocardiographic monitoring. Baseline vital signs and ECG were obtained. Lexiscan 0.4 mg was administered intravenously followed by administration of Cardiolite. The patient then went on to obtain myocardial perfusion imaging. Resting heart rate was 66 bpm and peak heart rate was 94 bpm. Resting blood pressure was 174/66 and peak blood pressure was 174/66. General Information: Reason for Stress Test: Preoperative evaluation, abnormal ECG. Cardiac History and Risk Factors: Diabetes. Resting 12 - Lead Electrocardiogram: Normal sinus rhythm, normal ECG. Stress Test: Protocol: Pharmacologic stress with Lexiscan. Exercise Capacity: Not assessed. Blood Pressure Response: Resting hypertension. Rhythm: Occasional PVCs reported. ST - Response: No ischemic ST changes seen. Patient Response: No symptoms. Interpretation: 1. No evidence of ischemic ECG changes seen following infusion of Lexiscan. 2. Uncontrolled systemic hypertension. 3. Myocardial perfusion images will be reported separately.
== END 2025-01-13 07:15 | disposition home or self-care (01) ==
LOC: NM 07:14
PROVIDERS: PCP Internal Medicine; Visit Provider Internal Medicine
DX: R06.09 Other forms of dyspnea (principal); E11.9 Type 2 diabetes mellitus without complications; R94.31 Abnormal electrocardiogram [ECG] [EKG]
CPT/HCPCS: 78452; 93017; A9500; J2785